=== PATIENT | male | born 1990 | race Caucasian/White ===

== ENCOUNTER 2016-12-08 04:52 | Inpatient (IN) ==
[2016-12-08] MEDS ORDERED: *HR* LORazepam 2 MG/ML VIAL IM PRN (05:00)
[2016-12-08] MEDS ORDERED: Haloperidol Lactate 5 MG/ML VIAL IM PRN (05:00)
[2016-12-08] MEDS ORDERED: Mag Hydrox/Al Hydrox/Simeth 30 ML UDC PO PRN (05:00)
[2016-12-08] MEDS ORDERED: MOM Conc 10 ML UD.LIQ PO PRN (05:00)
[2016-12-08] MEDS ORDERED: Acetaminophen 325 MG TABLET PO PRN (05:00)
[2016-12-08] MEDS ORDERED: traZODone 50 MG TABLET PO PRN (05:00)
[2016-12-08] MEDS ORDERED: *HR* LORazepam 1 MG TABLET PO PRN (05:00)
[2016-12-08] MEDS ORDERED: hydrOXYzine pamoate 25 MG CAPSULE PO PRN (05:00)
--- NOTE | 2016-12-08 10:29 | Psychiatry History & Physical ---
Date of Encounter: 12/08/16 Time of Encounter: 10:23 History of Present Illness Patient Stated Chief Complaint: Suicidal Medicare Admission Attestation: For traditional Medicare patients the provided hospital inpatient services are reasonable and necessary and in the case of services not specified as inpatient -only under 42 CFR 419.22 (n), that they are appropriately provided as inpatient services in accordance 42 CFR 412.3. For Critical Access Hospital the patient may reasonably be expected to be discharged or transferred to a hospital within 96 hours after admission to the Critical Access Hospital. Admitted From: Hospital to Hospital Transfer History of Present Illness: Mr. Chinchilla is a 26 year old male transferred from [facility] for suicidal ideation with plan to stab himself with a knife. Patient had long history of depression and substance abuse including alcohol and marijuana. He had been hospitalized several hospitals in [place] and this hospital when he was 19 years old. Patient is under probation for some legal charges until 2019. Prior to admission patient had an argument with his mother who was concern about his drinking and she wanted to kick him out of the house if he continued to drink. 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 Patient admitted to drinking daily beer and liquor, he does not believe it is a problem and he does not like to be referred to any rehabilitation services. He also is refusing to be on any medication and believes medications are all ineffective and make him "feel like a robot". Past Med Surg Social Fam HX - Past Medical History Medical history: no medical history - Past Psychiatric History Psychiatric history: Reports: depression, previous psychiatric hospitalization Past psychiatric history details: Hospitalization at [facility] 06/11/2009 ,mood disorder NOS , substance abuse and obsessive-compulsive. Family psychiatric history: Unknown Family History of Suicide: Unknown - Past Surgical History Surgical History: no surgical history - Social History Smoking Status: Never smoker Smokeless Tobacco Status: No Alcohol use: none Drug use: none Medications & Allergies No Known Home Drugs 12/08/16 [History] Allergies Penicillins Allergy (Verified 12/08/16 04:59) Rash Review of Systems Psychiatric: Reports: depression, suicidal ideation Mental Status Exam Patient orientation: Yes Person, Yes Time, Yes Place Level of alertness: Alert Patient appearance: Appropriate, Well Groomed Behavior: calm, cooperative, guarded Psychomotor activity: Normal Eye contact: Avoids Eye Contact Mood description: Anxious, Irritable Affect description: constricted, dysphoric Speech pattern: Normal rate, Normal rhythm, Normal tone, Limited Speech volume: Normal Thought process: Linear, Goal Oriented Thought content: Yes Suicidal ideation, Yes Homicidal ideation, No Overt delusions Perceptual disturbances: No Auditory hallucinations, No Visual hallucinations Attention span: Capable of Focused Attention Memory description: Grossly Intact Patient reliability: Reliable Historian Intelligence estimate: Average Judgment: Limited Insight: Partial Results - Vital Signs Vital signs: Temp Pulse Resp BP 98.8 F 54 16 102/62 12/08/16 08:48 12/08/16 08:48 12/08/16 08:48 12/08/16 08:48 Assessment and Plan (1) Mood disorder of depressed type Current visit: Yes Status: Acute Plan: Admit inpatient for safety and stabilization, Close observation, Suicide Precautions per unit protocol, Encourage participation in unit milieu, Group Therapy, Monitor sleep, Monitor appetite Additional Plan: Patient is refusing treatment was any medication and also refusing any oral substance abuse treatment. Risks, benefits, side effects, alternatives discussed w/pt: Yes Patient agreeable to treatment: No (Patient is refusing any medication)
--- NOTE | 2016-12-09 13:39 | Psychiatry Progress Note ---
Date of Encounter: 12/09/16 Time of Encounter: 13:35 Subjective Interval history: Patient was seen for follow-up. He will continue to review his medication and refused to participate in groups. She denies suicidal or homicidal ideation. No reports of agitation or disruptive behavior to self isolate in his room most of the time and does not interact with peers or staff. Review of Systems Psychiatric: Reports: depression, suicidal ideation Objective: Exam Patient orientation: Yes Person, Yes Time, Yes Place Level of alertness: Alert Patient appearance: Appropriate, Well Groomed Behavior: calm, cooperative, guarded Psychomotor activity: Normal Eye contact: Avoids Eye Contact Mood description: Anxious, Irritable Affect description: constricted, dysphoric Speech pattern: Normal rate, Normal rhythm, Normal tone, Limited Speech volume: Normal Thought process: Linear, Goal Oriented Thought content: No Overt delusions Perceptual disturbances: No Auditory hallucinations, No Visual hallucinations Judgment: Limited Insight: Partial Results - Vital Signs Vital Signs: Temp Pulse Resp BP 98.0 F 55 14 104/70 12/09/16 09:00 12/09/16 09:00 12/09/16 09:00 12/09/16 09:00 Assessment and Plan (1) Mood disorder of depressed type Current visit: Yes Status: Acute Plan: Continue hospitalization, Close observation, Suicide Precautions per unit protocol, Encourage participation in unit milieu, Group Therapy, Monitor sleep, Monitor appetite Risks, benefits, side effects, alternatives discussed w/pt: Yes Patient agreeable to treatment: No (Patient is refusing any medication) Consult Discharge Plan - Plan Referrals: NO,PCP [Primary Care Provider] -
--- NOTE | 2016-12-09 13:45 | Psychiatry Progress Note ---
Date of Encounter: 12/09/16 Time of Encounter: 13:46 Subjective Interval history: Patient seen for follow-up. He denies suicidal or homicidal ideation, he refused to take any medication. He refused to participate in groups, she self isolated in his room. Denies any complaints about sleep or appetite. His discharge planning is ongoing. He is not agitated or irritable. Review of Systems Psychiatric: Reports: depression, anxiety. Denies: suicidal ideation Objective: Exam Patient orientation: Yes Person, Yes Time, Yes Place Level of alertness: Alert Patient appearance: Appropriate, Well Groomed Behavior: calm, cooperative, guarded Psychomotor activity: Normal Eye contact: Avoids Eye Contact Mood description: Anxious, Irritable Affect description: constricted, dysphoric Speech pattern: Normal rate, Normal rhythm, Normal tone, Limited Speech volume: Normal Thought process: Linear, Goal Oriented Thought content: No Suicidal ideation, No Homicidal ideation, No Overt delusions Perceptual disturbances: No Auditory hallucinations, No Visual hallucinations Judgment: Limited Insight: Partial Results - Vital Signs Vital Signs: Temp Pulse Resp BP 98.0 F 55 14 104/70 12/09/16 09:00 12/09/16 09:00 12/09/16 09:00 12/09/16 09:00 Assessment and Plan (1) Mood disorder of depressed type Current visit: Yes Status: Acute Plan: Continue hospitalization, Close observation, Suicide Precautions per unit protocol, Encourage participation in unit milieu, Group Therapy, Monitor sleep, Monitor appetite Risks, benefits, side effects, alternatives discussed w/pt: Yes Patient agreeable to treatment: No (Patient is refusing any medication) Consult Discharge Plan - Plan Referrals: NO,PCP [Primary Care Provider] -
[2016-12-10 09:21] VITALS: BP 116/79
--- NOTE | 2016-12-10 13:11 | Discharge Summary ---
Date of Encounter: 12/10/16 Time of Encounter: 13:09 Diagnosis - Discharge Diagnosis (1) Mood disorder of depressed type Status: Acute (2) Alcohol dependence Status: Acute Qualifiers: Substance use status: alcohol-induced mood disorder Qualified Code(s): F10.24 - Alcohol dependence with alcohol-induced mood disorder Medications - Discharge Medications No Known Home Drugs 12/08/16 [History] Allergies Penicillins Allergy (Verified 12/08/16 04:59) Rash Provider Date of admission: 12/08/16 04:52 Primary care physician: PCP NO Discharging clinician: Raciel Soler Assessment and Plan - Patient/Caregiver Discharge Instructions Activity: resume usual activities as tolerated Diet: regular diet Additional Instructions: Patient declines for any outpatient follow-up appointments to be made on his behalf. Patient has been provided with resources for such should he wish to pursue this in the future. [place], [place] [address]/04 [facility] crisis number [phone]. - Follow up Plan Functional capacity at discharge: independent ambulation Overall status at discharge: Stable Disposition: Home, Self-Care Hospital Course Hospital course: Mr. Chinchilla is a 26 year old male admitted for suicidal ideation. Patient also has history of alcohol dependence. For details admission please see H&P On the units the patient's refusal was to take any medication, also refuses to attend any group or activities he isolated himself in his room and did not participate in any activities. He denies suicidal and homicidal ideation and he did not agree to follow-up plans or referral to rehabilitation treatment. Prior to discharge he was medically stable, on no medication, denies suicidal or homicidal ideation and refused any follow-up treatments. - Time Spent with Patient Total time spent providing and/or coordinating discharge services: Less than 30 minutes Quality - Multiple Antipsychotics Patient discharged on 2 or more antipsychotic medications: No Procedures - Procedures Procedures: Medication Management, Crisis Stabilization, Supportive Therapy, Group Therapy, Psychoeducational Therapy Mental Status Exam - Mental Status Exam Patient orientation: Yes Person, Yes Time, Yes Place Level of alertness: Alert Patient appearance: Appropriate, Well Groomed Behavior: calm, cooperative, guarded Psychomotor activity: Normal Eye contact: Avoids Eye Contact Mood description: Euthymic/stable, Anxious Affect description: congruent with mood, euthymic Speech pattern: Normal rate, Normal rhythm, Normal tone, Limited Speech Volume: Normal Thought process: Linear, Goal Oriented Thought Content: No Suicidal ideation, No Homicidal ideation, No Overt delusions Perceptual Disturbances: No Auditory hallucinations, No Visual hallucinations Judgment: Fair Insight: Partial
== END 2016-12-10 15:20 | disposition home or self-care (01) | DRG 753 ==
LOC: 1ANU 04:52
PROVIDERS: ADMIT Psychiatry & Neurology Psychiatry; ATTEND Psychiatry & Neurology Psychiatry

== ENCOUNTER 2016-12-11 18:15 | Inpatient (IN) ==
[2016-12-11 18:51] LABS: Basophils % 0.3 %; Eosinophils # 0.1 K/mcL (0.0-0.6); Eosinophils % 0.9 %; Hematocrit 42.6 % (37.5-50.1); Hemoglobin 14.7 g/dL (12.9-16.9); Immature Granulocytes % 0.2 % (0-4); Lymphocytes # 2.1 K/mcL (0.6-4.6); Lymphocytes % 23.7 %; Mean Corpuscular HGB Conc 34.5 g/dL (31.6-35.5); Mean Corpuscular Hemoglobin 30.2 pg (28.0-33.3); Mean Corpuscular Volume 87.7 fL (83.0-100.0); Mean Platelet Volume 8.6 fL (9.4-12.4); Monocytes # 0.7 K/mcL (0.0-1.3); Monocytes % 8.2 %; Platelet Count 290 K/mcL (140-400); Red Blood Count 4.86 M/mcL (4.19-5.50); Red Cell Distribution Width 12.3 % (11.5-14.5); Segmented Neutrophils % 66.7 %
--- NOTE | 2016-12-11 19:05 | Emergency Department Note ---
Disposition Clinical Impression: Suicidal ideation Suicide attempt by hanging Qualifiers: Encounter type: initial encounter Qualified Code(s): T71.162A - Asphyxiation due to hanging, intentional self-harm, initial encounter Disposition: Still a Patient Condition: Fair Referrals: NO,PCP [Primary Care Provider] - Forms: ED Satisfaction Letter General Adult HPI - General Chief complaint: ED Psychiatric Symptoms Stated complaint: SI Time Seen by Provider: 12/11/16 18:25 Source: patient Limitations: no limitations Nursing Notes Reviewed: Yes Vital Signs Reviewed: Yes - History of Present Illness Pain Scale: 0 - Related Data Home Medications Medication Instructions Recorded Confirmed No Known Home Drugs 12/08/16 12/08/16 Allergies Allergy/AdvReac Type Severity Reaction Status Date / Time Penicillins Allergy Rash Verified 12/08/16 04:59 Past Medical History - Past Medical History Medical history: Reports: no medical history Surgical history: Reports: no surgical history Psychiatric history: Reports: anxiety, bipolar, depression, schizophrenia, previous psychiatric hospitalization, other - Social History Smoking Status: Former smoker Smokeless Tobacco Status: No Alcohol use: Reports: none Drug use: Reports: none Physical Exam - General Limitations: no limitations General appearance: alert, in no apparent distress Course Vital Signs Temperature 98.4 F 12/11/16 18:16 Pulse Rate 82 12/11/16 18:16 Respiratory Rate 16 12/11/16 18:16 Blood Pressure 143/91 12/11/16 18:16 O2 Sat by Pulse Oximetry 100 12/11/16 18:16 Temperature 98.4 F 12/11/16 18:16 Pulse Rate 89 12/11/16 21:21 Respiratory Rate 14 12/11/16 21:21 Blood Pressure 121/64 12/11/16 21:21 O2 Sat by Pulse Oximetry 97 12/11/16 21:21 Oxygen Delivery Oxygen Delivery Room Air Medical Decision Making - MDM Narrative Medical decision making narrative: I examined this patient and my medical decision-making was reviewed with the DIRECTOR OF ASSESSMENT/PA/Advanced Practice Nurse/Resident Physician. I agree with the documented findings, disposition and treatment plan as described except to the extent set forth below. Patient seen and evaluated. Myself, agree with his evaluation management plan, Suprax give additional stay. Patient is a history of suicidal ideations was just dismissed from psychiatric services. He went home today he put a rope around his neck and and leaned out over it but did not actually hang himself. A he decided that this was a bad idea & came in here to be seen here is cooperative does have somewhat of a flat effect. Denies any visual or auditory hallucinations. Getting clearance labs and then will speak to onea further evaluation and probable admission. 2039 hours: Patient's labs are back, 1A has evaluated the patient that I speak with her psychiatrist and then they will get back to us as far as disposition. - Lab Data Result diagrams: 12/11/16 18:43 12/11/16 18:43 Lab Results 12/11/16 12/11/16 12/11/16 Range/Units 18:25 18:40 18:43 WBC 9.0 (4.3-11.1) K/mcL RBC 4.86 (4.19-5.50) M/mcL Hgb 14.7 (12.9-16.9) g/dL Hct 42.6 (37.5-50.1) % MCV 87.7 (83.0-100.0) fL MCH 30.2 (28.0-33.3) pg MCHC 34.5 (31.6-35.5) g/dL RDW 12.3 (11.5-14.5) % Plt Count 290 (140-400) K/mcL MPV 8.6 L (9.4-12.4) fL Immature Gran % 0.2 (0-4) % Seg Neutrophils % 66.7 % Lymphocytes % 23.7 % Monocytes % 8.2 % Eosinophils % 0.9 % Basophils % 0.3 % Neutrophils # 6.0 (1.6-8.9) K/mcL Lymphocytes # 2.1 (0.6-4.6) K/mcL Monocytes # 0.7 (0.0-1.3) K/mcL Eosinophils # 0.1 (0.0-0.6) K/mcL Basophils # 0.0 (0.0-0.2) K/mcL Sodium (136-145) mEq/L Potassium (3.5-4.5) mEq/L Chloride (98-109) mEq/L Carbon Dioxide (19-29) mEq/L BUN (8-26) mg/dL Creatinine (0.72-1.25) mg/dL Est GFR ( Amer) (> 60) Est GFR (Non-Af Amer) (> 60) BUN/Creatinine Ratio (6-26) Glucose (70-99) mg/dL Calculated Osmolality (280-300) Calcium (8.6-10.8) mg/dL Urine Color Yellow (Yellow) Urine Clarity Clear (Clear) Urine pH 6.5 (5.0-8.0) pH Units Ur Specific Corinne 1.010 (1.010-1.025) Urine Protein Negative (Neg-Trace) mg/dL Urine Glucose (UA) Normal (Normal) mg/dL Urine Ketones Negative (Negative) mg/dL Urine Blood Negative (Negative) Urine Nitrite Negative (Negative) Urine Bilirubin Negative (Negative) Urine Urobilinogen Normal (Normal) mg/dL Ur Leukocyte Esterase Negative (Negative) Salicylates (15-30) mg/dL Urine Opiates Screen Negative (Znxwbg=245) ng/mL Acetaminophen (10-30) mcg/mL Ur Barbiturates Screen Negative (Cvxonp=292) ng/mL Ur Phencyclidine Scrn Negative (Cutoff=25) ng/mL Ur Amphetamines Screen Negative (Ywbjdh=1453) ng/mL U Benzodiazepines Scrn Negative (Kwsbis=137) ng/mL Urine Cocaine Screen Negative (Cutoff= 300) ng/mL U Marijuana (THC) Screen Negative (Cutoff = 50) ng/mL Ethyl Alcohol (0-10) mg/dL 12/11/16 Range/Units 18:43 WBC (4.3-11.1) K/mcL RBC (4.19-5.50) M/mcL Hgb (12.9-16.9) g/dL Hct (37.5-50.1) % MCV (83.0-100.0) fL MCH (28.0-33.3) pg MCHC (31.6-35.5) g/dL RDW (11.5-14.5) % Plt Count (140-400) K/mcL MPV (9.4-12.4) fL Immature Gran % (0-4) % Seg Neutrophils % % Lymphocytes % % Monocytes % % Eosinophils % % Basophils % % Neutrophils # (1.6-8.9) K/mcL Lymphocytes # (0.6-4.6) K/mcL Monocytes # (0.0-1.3) K/mcL Eosinophils # (0.0-0.6) K/mcL Basophils # (0.0-0.2) K/mcL Sodium 140 (136-145) mEq/L Potassium 3.4 L (3.5-4.5) mEq/L Chloride 103 (98-109) mEq/L Carbon Dioxide 27 (19-29) mEq/L BUN 9 (8-26) mg/dL Creatinine 1.20 (0.72-1.25) mg/dL Est GFR ( Amer) > 60 (> 60) Est GFR (Non-Af Amer) > 60 (> 60) BUN/Creatinine Ratio 8 (6-26) Glucose 93 (70-99) mg/dL Calculated Osmolality 288 (280-300) Calcium 9.2 (8.6-10.8) mg/dL Urine Color (Yellow) Urine Clarity (Clear) Urine pH (5.0-8.0) pH Units Ur Specific Corinne (1.010-1.025) Urine Protein (Neg-Trace) mg/dL Urine Glucose (UA) (Normal) mg/dL Urine Ketones (Negative) mg/dL Urine Blood (Negative) Urine Nitrite (Negative) Urine Bilirubin (Negative) Urine Urobilinogen (Normal) mg/dL Ur Leukocyte Esterase (Negative) Salicylates < 5.0 L (15-30) mg/dL Urine Opiates Screen (Fqcjzq=942) ng/mL Acetaminophen < 1.0 L (10-30) mcg/mL Ur Barbiturates Screen (Mrhuwp=608) ng/mL Ur Phencyclidine Scrn (Cutoff=25) ng/mL Ur Amphetamines Screen (Vilsga=4900) ng/mL U Benzodiazepines Scrn (Nxinxx=826) ng/mL Urine Cocaine Screen (Cutoff= 300) ng/mL U Marijuana (THC) Screen (Cutoff = 50) ng/mL Ethyl Alcohol < 10 (0-10) mg/dL
[2016-12-11 19:06] LABS: Acetaminophen < 1.0 mcg/mL (10-30); BUN/Creatinine Ratio 8 (6-26); Blood Urea Nitrogen 9 mg/dL (8-26); Calcium 9.2 mg/dL (8.6-10.8); Carbon Dioxide 27 mEq/L (19-29); Chloride 103 mEq/L (98-109); Ethanol < 10 mg/dL (0-10); Glucose 93 mg/dL (70-99); Osmolality,Calculated 288 (280-300); Potassium 3.4 mEq/L (3.5-4.5); Salicylate < 5.0 mg/dL (15-30); Sodium 140 mEq/L (136-145); eGFR For African Americans > 60 (> 60); eGFR For Non-African Americans > 60 (> 60)
[2016-12-11 19:07] LABS: Amphetamine Screen,Urine Negative ng/mL (Cutoff=1000); Barbiturate Screen,Urine Negative ng/mL (Cutoff=200); Benzodiazepines Screen,Urine Negative ng/mL (Cutoff=200); Cannabinoid Screen,Urine Negative ng/mL (Cutoff = 50); Cocaine Screen,Urine Negative ng/mL (Cutoff= 300); Opiate Screen,Urine Negative ng/mL (Cutoff=300); Phencyclidine Screen,Urine Negative ng/mL (Cutoff=25)
[2016-12-11 19:30] LABS: Bilirubin,Urine Negative (Negative); Clarity,Urine Clear (Clear); Color,Urine Yellow (Yellow); Glucose,Urine (UA) Normal (Normal); Ketones,Urine Negative (Negative)
[2016-12-11 19:31] LABS: Blood,Urine Negative (Negative); Leukocyte Esterase,Urine Negative (Negative); Nitrite,Urine Negative (Negative); PH,Urine 6.5 pH Units (5.0-8.0); Protein,Urine Negative (Neg-Trace); Urobilinogen,Urine Normal (Normal)
--- NOTE | 2016-12-11 19:42 | Emergency Department Note ---
Disposition Clinical Impression: Suicidal ideation Suicide attempt by hanging Qualifiers: Encounter type: initial encounter Qualified Code(s): T71.162A - Asphyxiation due to hanging, intentional self-harm, initial encounter Disposition: Still a Patient Condition: Fair Referrals: NO,PCP [Primary Care Provider] - Forms: ED Satisfaction Letter General Adult HPI - General Chief complaint: ED Psychiatric Symptoms Stated complaint: SI Time Seen by Provider: 12/11/16 18:25 Source: patient Limitations: no limitations Nursing Notes Reviewed: Yes Vital Signs Reviewed: Yes - History of Present Illness HPI Narrative: 26-year-old male with past medical history depression and prior suicide attempts. He said he went out to the [place] today with a rope and tied it around a tree and then put it around his neck and slowly leaned into it to try to make himself pass out. He did not jump off a branch or suspend his body by the rope. He became lightheaded after about 30 seconds and then thought better of it and came to the emergency department. He denies taking any medications. He denies any medical problems aside from a psychiatric history. He denies overdosing on any medications. He denies any pain in his neck, headache, or numbness or tingling in his hands or feet. He admits that he did want to kill himself and that he still wants to kill himself. Pain Scale: 0 Improves with: nothing Worsens with: nothing - Related Data Home Medications Medication Instructions Recorded Confirmed No Known Home Drugs 12/08/16 12/08/16 Allergies Allergy/AdvReac Type Severity Reaction Status Date / Time Penicillins Allergy Rash Verified 12/08/16 04:59 All systems ED: reviewed and negative except as stated. Constitutional: Denies: fever Eyes: Denies: vision change ENT ED: Denies: throat pain Cardiovascular: Denies: chest pain Respiratory: Denies: cough Gastrointestinal: Denies: abdominal pain Integumentary: Denies: rash Neurological: Denies: headache Past Medical History - Past Medical History Medical history: Reports: no medical history Surgical history: Reports: no surgical history Psychiatric history: Reports: anxiety, bipolar, depression, schizophrenia, previous psychiatric hospitalization, other - Social History Smoking Status: Former smoker Smokeless Tobacco Status: No Alcohol use: Reports: none Drug use: Reports: none Physical Exam - General Limitations: no limitations General appearance: alert, in no apparent distress - Eye Eye exam: Present: normal appearance, PERRL, other (No conjunctival hemorrhage) - ENT ENT exam: normal exam, normal oropharynx - Neck Neck exam: Present: other (Mild abrasion to left lateral neck) - Chest Chest inspection: Present: normal inspection - Respiratory Respiratory exam: Present: normal lung sounds bilaterally. Absent: respiratory distress - Cardiovascular Cardiovascular exam: Present: regular rate, normal rhythm - Abdominal Exam Abdominal exam: Present: soft, Non-Tender - Extremities Exam Extremities exam: Present: normal inspection - Neurological Exam Neurological exam: Present: alert, oriented X3 - Psychiatric Psychiatric exam: Present: depressed - Skin Skin exam: Present: warm, dry Course Course Narrative: Will obtain medical screening labs. There is no symptom that he currently has it is consistent with carotid artery injury or vertebral artery injury. He has normal neurologic exam. No neck pain or headache. He has no pain on palpation of the cervical spine. - Reevaluation(s) Reevaluation #1: This patient was evaluated by [facility] and they will work on transfer to a state facility. This patient has been signed out to the night team while waiting for placement. Vital Signs Temperature 98.4 F 12/11/16 18:16 Pulse Rate 82 12/11/16 18:16 Respiratory Rate 16 12/11/16 18:16 Blood Pressure 143/91 12/11/16 18:16 O2 Sat by Pulse Oximetry 100 12/11/16 18:16 Temperature 98.4 F 12/11/16 18:16 Pulse Rate 89 12/11/16 21:21 Respiratory Rate 14 12/11/16 21:21 Blood Pressure 121/64 12/11/16 21:21 O2 Sat by Pulse Oximetry 97 12/11/16 21:21 Oxygen Delivery Oxygen Delivery Room Air Medical Decision Making - Medical Records Medical records reviewed: Yes I reviewed the patient's medical records. - Lab Data Lab results reviewed: Yes I reviewed the patient's lab results. Result diagrams: 12/11/16 18:43 12/11/16 18:43 Lab Results 12/11/16 12/11/16 12/11/16 Range/Units 18:25 18:40 18:43 WBC 9.0 (4.3-11.1) K/mcL RBC 4.86 (4.19-5.50) M/mcL Hgb 14.7 (12.9-16.9) g/dL Hct 42.6 (37.5-50.1) % MCV 87.7 (83.0-100.0) fL MCH 30.2 (28.0-33.3) pg MCHC 34.5 (31.6-35.5) g/dL RDW 12.3 (11.5-14.5) % Plt Count 290 (140-400) K/mcL MPV 8.6 L (9.4-12.4) fL Immature Gran % 0.2 (0-4) % Seg Neutrophils % 66.7 % Lymphocytes % 23.7 % Monocytes % 8.2 % Eosinophils % 0.9 % Basophils % 0.3 % Neutrophils # 6.0 (1.6-8.9) K/mcL Lymphocytes # 2.1 (0.6-4.6) K/mcL Monocytes # 0.7 (0.0-1.3) K/mcL Eosinophils # 0.1 (0.0-0.6) K/mcL Basophils # 0.0 (0.0-0.2) K/mcL Sodium (136-145) mEq/L Potassium (3.5-4.5) mEq/L Chloride (98-109) mEq/L Carbon Dioxide (19-29) mEq/L BUN (8-26) mg/dL Creatinine (0.72-1.25) mg/dL Est GFR ( Amer) (> 60) Est GFR (Non-Af Amer) (> 60) BUN/Creatinine Ratio (6-26) Glucose (70-99) mg/dL Calculated Osmolality (280-300) Calcium (8.6-10.8) mg/dL Urine Color Yellow (Yellow) Urine Clarity Clear (Clear) Urine pH 6.5 (5.0-8.0) pH Units Ur Specific [place] 1.010 (1.010-1.025) Urine Protein Negative (Neg-Trace) mg/dL Urine Glucose (UA) Normal (Normal) mg/dL Urine Ketones Negative (Negative) mg/dL Urine Blood Negative (Negative) Urine Nitrite Negative (Negative) Urine Bilirubin Negative (Negative) Urine Urobilinogen Normal (Normal) mg/dL Ur Leukocyte Esterase Negative (Negative) Salicylates (15-30) mg/dL Urine Opiates Screen Negative (Obnros=352) ng/mL Acetaminophen (10-30) mcg/mL Ur Barbiturates Screen Negative (Odtwfs=989) ng/mL Ur Phencyclidine Scrn Negative (Cutoff=25) ng/mL Ur Amphetamines Screen Negative (Dpignm=8340) ng/mL U Benzodiazepines Scrn Negative (Ncyfkl=659) ng/mL Urine Cocaine Screen Negative (Cutoff= 300) ng/mL U Marijuana (THC) Screen Negative (Cutoff = 50) ng/mL Ethyl Alcohol (0-10) mg/dL 12/11/16 Range/Units 18:43 WBC (4.3-11.1) K/mcL RBC (4.19-5.50) M/mcL Hgb (12.9-16.9) g/dL Hct (37.5-50.1) % MCV (83.0-100.0) fL MCH (28.0-33.3) pg MCHC (31.6-35.5) g/dL RDW (11.5-14.5) % Plt Count (140-400) K/mcL MPV (9.4-12.4) fL Immature Gran % (0-4) % Seg Neutrophils % % Lymphocytes % % Monocytes % % Eosinophils % % Basophils % % Neutrophils # (1.6-8.9) K/mcL Lymphocytes # (0.6-4.6) K/mcL Monocytes # (0.0-1.3) K/mcL Eosinophils # (0.0-0.6) K/mcL Basophils # (0.0-0.2) K/mcL Sodium 140 (136-145) mEq/L Potassium 3.4 L (3.5-4.5) mEq/L Chloride 103 (98-109) mEq/L Carbon Dioxide 27 (19-29) mEq/L BUN 9 (8-26) mg/dL Creatinine 1.20 (0.72-1.25) mg/dL Est GFR ( Amer) > 60 (> 60) Est GFR (Non-Af Amer) > 60 (> 60) BUN/Creatinine Ratio 8 (6-26) Glucose 93 (70-99) mg/dL Calculated Osmolality 288 (280-300) Calcium 9.2 (8.6-10.8) mg/dL Urine Color (Yellow) Urine Clarity (Clear) Urine pH (5.0-8.0) pH Units Ur Specific [place] (1.010-1.025) Urine Protein (Neg-Trace) mg/dL Urine Glucose (UA) (Normal) mg/dL Urine Ketones (Negative) mg/dL Urine Blood (Negative) Urine Nitrite (Negative) Urine Bilirubin (Negative) Urine Urobilinogen (Normal) mg/dL Ur Leukocyte Esterase (Negative) Salicylates < 5.0 L (15-30) mg/dL Urine Opiates Screen (Pgmfvw=879) ng/mL Acetaminophen < 1.0 L (10-30) mcg/mL Ur Barbiturates Screen (Nlvxqn=020) ng/mL Ur Phencyclidine Scrn (Cutoff=25) ng/mL Ur Amphetamines Screen (Bluhvb=7981) ng/mL U Benzodiazepines Scrn (Enogot=986) ng/mL Urine Cocaine Screen (Cutoff= 300) ng/mL U Marijuana (THC) Screen (Cutoff = 50) ng/mL Ethyl Alcohol < 10 (0-10) mg/dL
--- NOTE | 2016-12-11 22:52 | Emergency Department Note ---
Disposition Clinical Impression: Suicidal ideation Suicide attempt by hanging Qualifiers: Encounter type: initial encounter Qualified Code(s): T71.162A - Asphyxiation due to hanging, intentional self-harm, initial encounter Disposition: Still a Patient Condition: Fair Referrals: NO,PCP [Primary Care Provider] - Forms: ED Satisfaction Letter General Adult HPI - General Chief complaint: ED Psychiatric Symptoms Stated complaint: SI Time Seen by Provider: 12/11/16 18:25 Source: patient Limitations: no limitations Nursing Notes Reviewed: Yes Vital Signs Reviewed: Yes - History of Present Illness Pain Scale: 0 Improves with: nothing Worsens with: nothing - Related Data Home Medications Medication Instructions Recorded Confirmed No Known Home Drugs 12/08/16 12/08/16 Allergies Allergy/AdvReac Type Severity Reaction Status Date / Time Penicillins Allergy Rash Verified 12/08/16 04:59 Constitutional: Denies: fever Eyes: Denies: vision change ENT ED: Denies: throat pain Cardiovascular: Denies: chest pain Respiratory: Denies: cough Gastrointestinal: Denies: abdominal pain Integumentary: Denies: rash Neurological: Denies: headache Past Medical History - Past Medical History Medical history: Reports: no medical history Surgical history: Reports: no surgical history Psychiatric history: Reports: anxiety, bipolar, depression, schizophrenia, previous psychiatric hospitalization, other - Social History Smoking Status: Former smoker Smokeless Tobacco Status: No Alcohol use: Reports: none Drug use: Reports: none Physical Exam - General Limitations: no limitations General appearance: alert, in no apparent distress Course Vital Signs Temperature 98.4 F 12/11/16 18:16 Pulse Rate 82 12/11/16 18:16 Respiratory Rate 16 12/11/16 18:16 Blood Pressure 143/91 12/11/16 18:16 O2 Sat by Pulse Oximetry 100 12/11/16 18:16 Temperature 98.4 F 12/11/16 18:16 Pulse Rate 89 12/11/16 21:21 Respiratory Rate 14 12/11/16 21:21 Blood Pressure 121/64 12/11/16 21:21 O2 Sat by Pulse Oximetry 97 12/11/16 21:21 Oxygen Delivery Oxygen Delivery Room Air Medical Decision Making - MDM Narrative Medical decision making narrative: 2251 hrs.: Signing this patient out to the evening ER physician, Dr Art until he is able to be placed by 18. Patient has no questions at this point he has been cooperative here at this time. - Lab Data Result diagrams: 12/11/16 18:43 12/11/16 18:43 Lab Results 12/11/16 12/11/16 12/11/16 Range/Units 18:25 18:40 18:43 WBC 9.0 (4.3-11.1) K/mcL RBC 4.86 (4.19-5.50) M/mcL Hgb 14.7 (12.9-16.9) g/dL Hct 42.6 (37.5-50.1) % MCV 87.7 (83.0-100.0) fL MCH 30.2 (28.0-33.3) pg MCHC 34.5 (31.6-35.5) g/dL RDW 12.3 (11.5-14.5) % Plt Count 290 (140-400) K/mcL MPV 8.6 L (9.4-12.4) fL Immature Gran % 0.2 (0-4) % Seg Neutrophils % 66.7 % Lymphocytes % 23.7 % Monocytes % 8.2 % Eosinophils % 0.9 % Basophils % 0.3 % Neutrophils # 6.0 (1.6-8.9) K/mcL Lymphocytes # 2.1 (0.6-4.6) K/mcL Monocytes # 0.7 (0.0-1.3) K/mcL Eosinophils # 0.1 (0.0-0.6) K/mcL Basophils # 0.0 (0.0-0.2) K/mcL Sodium (136-145) mEq/L Potassium (3.5-4.5) mEq/L Chloride (98-109) mEq/L Carbon Dioxide (19-29) mEq/L BUN (8-26) mg/dL Creatinine (0.72-1.25) mg/dL Est GFR ( Amer) (> 60) Est GFR (Non-Af Amer) (> 60) BUN/Creatinine Ratio (6-26) Glucose (70-99) mg/dL Calculated Osmolality (280-300) Calcium (8.6-10.8) mg/dL Urine Color Yellow (Yellow) Urine Clarity Clear (Clear) Urine pH 6.5 (5.0-8.0) pH Units Ur Specific [place] 1.010 (1.010-1.025) Urine Protein Negative (Neg-Trace) mg/dL Urine Glucose (UA) Normal (Normal) mg/dL Urine Ketones Negative (Negative) mg/dL Urine Blood Negative (Negative) Urine Nitrite Negative (Negative) Urine Bilirubin Negative (Negative) Urine Urobilinogen Normal (Normal) mg/dL Ur Leukocyte Esterase Negative (Negative) Salicylates (15-30) mg/dL Urine Opiates Screen Negative (Shfazg=785) ng/mL Acetaminophen (10-30) mcg/mL Ur Barbiturates Screen Negative (Mptmti=063) ng/mL Ur Phencyclidine Scrn Negative (Cutoff=25) ng/mL Ur Amphetamines Screen Negative (Ncytny=9628) ng/mL U Benzodiazepines Scrn Negative (Rvgjtq=267) ng/mL Urine Cocaine Screen Negative (Cutoff= 300) ng/mL U Marijuana (THC) Screen Negative (Cutoff = 50) ng/mL Ethyl Alcohol (0-10) mg/dL 12/11/16 Range/Units 18:43 WBC (4.3-11.1) K/mcL RBC (4.19-5.50) M/mcL Hgb (12.9-16.9) g/dL Hct (37.5-50.1) % MCV (83.0-100.0) fL MCH (28.0-33.3) pg MCHC (31.6-35.5) g/dL RDW (11.5-14.5) % Plt Count (140-400) K/mcL MPV (9.4-12.4) fL Immature Gran % (0-4) % Seg Neutrophils % % Lymphocytes % % Monocytes % % Eosinophils % % Basophils % % Neutrophils # (1.6-8.9) K/mcL Lymphocytes # (0.6-4.6) K/mcL Monocytes # (0.0-1.3) K/mcL Eosinophils # (0.0-0.6) K/mcL Basophils # (0.0-0.2) K/mcL Sodium 140 (136-145) mEq/L Potassium 3.4 L (3.5-4.5) mEq/L Chloride 103 (98-109) mEq/L Carbon Dioxide 27 (19-29) mEq/L BUN 9 (8-26) mg/dL Creatinine 1.20 (0.72-1.25) mg/dL Est GFR ( Amer) > 60 (> 60) Est GFR (Non-Af Amer) > 60 (> 60) BUN/Creatinine Ratio 8 (6-26) Glucose 93 (70-99) mg/dL Calculated Osmolality 288 (280-300) Calcium 9.2 (8.6-10.8) mg/dL Urine Color (Yellow) Urine Clarity (Clear) Urine pH (5.0-8.0) pH Units Ur Specific [place] (1.010-1.025) Urine Protein (Neg-Trace) mg/dL Urine Glucose (UA) (Normal) mg/dL Urine Ketones (Negative) mg/dL Urine Blood (Negative) Urine Nitrite (Negative) Urine Bilirubin (Negative) Urine Urobilinogen (Normal) mg/dL Ur Leukocyte Esterase (Negative) Salicylates < 5.0 L (15-30) mg/dL Urine Opiates Screen (Pxfyge=453) ng/mL Acetaminophen < 1.0 L (10-30) mcg/mL Ur Barbiturates Screen (Zskkjt=212) ng/mL Ur Phencyclidine Scrn (Cutoff=25) ng/mL Ur Amphetamines Screen (Pqluww=5669) ng/mL U Benzodiazepines Scrn (Mewywz=777) ng/mL Urine Cocaine Screen (Cutoff= 300) ng/mL U Marijuana (THC) Screen (Cutoff = 50) ng/mL Ethyl Alcohol < 10 (0-10) mg/dL
--- NOTE | 2016-12-12 03:11 | Emergency Department Note ---
START Narrative - START START: 300. Patient resting comfortably. [facility] attempting to place. 0700. Patient still, cooperative. Still awaiting placement. Signed out to day shift doctor Jl.
--- NOTE | 2016-12-12 07:15 | Emergency Department Note ---
Disposition Clinical Impression: Suicidal ideation Disposition: Admitted As Inpatient Condition: Good Referrals: NO,PCP [Primary Care Provider] - Surya Wright MD [Partnered Physician] - Forms: ED Satisfaction Letter Time of Disposition: 12:31 General Adult HPI - General Chief complaint: ED Psychiatric Symptoms Stated complaint: SI Time Seen by Provider: 12/11/16 18:25 Source: patient Limitations: no limitations - History of Present Illness Pain Scale: 0 Improves with: nothing Worsens with: nothing - Related Data Home Medications Medication Instructions Recorded Confirmed No Known Home Drugs 12/08/16 12/08/16 Allergies Allergy/AdvReac Type Severity Reaction Status Date / Time Penicillins Allergy Rash Verified 12/08/16 04:59 Constitutional: Denies: fever Eyes: Denies: vision change ENT ED: Denies: throat pain Cardiovascular: Denies: chest pain Respiratory: Denies: cough Gastrointestinal: Denies: abdominal pain Integumentary: Denies: rash Neurological: Denies: headache Past Medical History - Past Medical History Medical history: Reports: no medical history Surgical history: Reports: no surgical history Psychiatric history: Reports: anxiety, bipolar, depression, schizophrenia, previous psychiatric hospitalization, other - Social History Smoking Status: Former smoker Smokeless Tobacco Status: No Alcohol use: Reports: none Drug use: Reports: none Physical Exam - General Limitations: no limitations General appearance: alert, in no apparent distress Course - Reevaluation(s) Reevaluation #1: Patient received in sign out from the overnight attending Dr. umana. She got the patient in signout from Dr. Childs. Please refer to their notes for initial evaluation workup and management. Patient was accepted at 700. Patient has been pink slipped. Patient is waiting to be placed into an inpatient state facility. Patient is stable. Mental health services working on disposition. Time: 07:14 Reevaluation #2: Discussed the case with P, health services had a discussion with the psychiatric attending Dr. FITCH. They felt the patient was currently not suicidal. It was just recently admitted and declined the forms of intervention including therapy individual therapy pharmacotherapy and no other interventions. There is no acute lethality patient can be discharged home and given and offered outpatient follow-up should the patient she was taken advantage of this. Otherwise he is stable for discharge home. Time: 11:48 Reevaluation #3: Upon discharge and the patient the patient admitted that before when he was evaluated by mental health he was not feeling suicidal at that exact moment". Now he is. I recontacted mental health will come down to evaluate the patient and make a disposition. Disposition pending. Patient stable. Time: 12:06 - Consultations Consultation #1: Discussion with The nurse from mental health services contacted the psychiatric attending home care companion who stated for safety with the patient will be admitted for further evaluation and treatment. Admission were placed. [place] slip on chart. Patient admitted to mental health in stable condition Time: 12:31 Vital Signs Temperature 98.4 F 12/11/16 18:16 Pulse Rate 82 12/11/16 18:16 Respiratory Rate 16 12/11/16 18:16 Blood Pressure 143/91 12/11/16 18:16 O2 Sat by Pulse Oximetry 100 12/11/16 18:16 Temperature 98.4 F 12/11/16 18:16 Pulse Rate 67 12/12/16 12:13 Respiratory Rate 16 12/12/16 12:13 Blood Pressure 123/79 12/12/16 12:13 O2 Sat by Pulse Oximetry 97 12/12/16 12:13 Oxygen Delivery Oxygen Delivery Room Air Medical Decision Making - Lab Data Result diagrams: 12/11/16 18:43 12/11/16 18:43 Lab Results 12/11/16 12/11/16 12/11/16 Range/Units 18:25 18:40 18:43 WBC 9.0 (4.3-11.1) K/mcL RBC 4.86 (4.19-5.50) M/mcL Hgb 14.7 (12.9-16.9) g/dL Hct 42.6 (37.5-50.1) % MCV 87.7 (83.0-100.0) fL MCH 30.2 (28.0-33.3) pg MCHC 34.5 (31.6-35.5) g/dL RDW 12.3 (11.5-14.5) % Plt Count 290 (140-400) K/mcL MPV 8.6 L (9.4-12.4) fL Immature Gran % 0.2 (0-4) % Seg Neutrophils % 66.7 % Lymphocytes % 23.7 % Monocytes % 8.2 % Eosinophils % 0.9 % Basophils % 0.3 % Neutrophils # 6.0 (1.6-8.9) K/mcL Lymphocytes # 2.1 (0.6-4.6) K/mcL Monocytes # 0.7 (0.0-1.3) K/mcL Eosinophils # 0.1 (0.0-0.6) K/mcL Basophils # 0.0 (0.0-0.2) K/mcL Sodium (136-145) mEq/L Potassium (3.5-4.5) mEq/L Chloride (98-109) mEq/L Carbon Dioxide (19-29) mEq/L BUN (8-26) mg/dL Creatinine (0.72-1.25) mg/dL Est GFR ( Amer) (> 60) Est GFR (Non-Af Amer) (> 60) BUN/Creatinine Ratio (6-26) Glucose (70-99) mg/dL Calculated Osmolality (280-300) Calcium (8.6-10.8) mg/dL Urine Color Yellow (Yellow) Urine Clarity Clear (Clear) Urine pH 6.5 (5.0-8.0) pH Units Ur Specific [place] 1.010 (1.010-1.025) Urine Protein Negative (Neg-Trace) mg/dL Urine Glucose (UA) Normal (Normal) mg/dL Urine Ketones Negative (Negative) mg/dL Urine Blood Negative (Negative) Urine Nitrite Negative (Negative) Urine Bilirubin Negative (Negative) Urine Urobilinogen Normal (Normal) mg/dL Ur Leukocyte Esterase Negative (Negative) Salicylates (15-30) mg/dL Urine Opiates Screen Negative (Uyfavg=221) ng/mL Acetaminophen (10-30) mcg/mL Ur Barbiturates Screen Negative (Orpady=318) ng/mL Ur Phencyclidine Scrn Negative (Cutoff=25) ng/mL Ur Amphetamines Screen Negative (Dpjacr=1904) ng/mL U Benzodiazepines Scrn Negative (Hjxesl=409) ng/mL Urine Cocaine Screen Negative (Cutoff= 300) ng/mL U Marijuana (THC) Screen Negative (Cutoff = 50) ng/mL Ethyl Alcohol (0-10) mg/dL 12/11/16 Range/Units 18:43 WBC (4.3-11.1) K/mcL RBC (4.19-5.50) M/mcL Hgb (12.9-16.9) g/dL Hct (37.5-50.1) % MCV (83.0-100.0) fL MCH (28.0-33.3) pg MCHC (31.6-35.5) g/dL RDW (11.5-14.5) % Plt Count (140-400) K/mcL MPV (9.4-12.4) fL Immature Gran % (0-4) % Seg Neutrophils % % Lymphocytes % % Monocytes % % Eosinophils % % Basophils % % Neutrophils # (1.6-8.9) K/mcL Lymphocytes # (0.6-4.6) K/mcL Monocytes # (0.0-1.3) K/mcL Eosinophils # (0.0-0.6) K/mcL Basophils # (0.0-0.2) K/mcL Sodium 140 (136-145) mEq/L Potassium 3.4 L (3.5-4.5) mEq/L Chloride 103 (98-109) mEq/L Carbon Dioxide 27 (19-29) mEq/L BUN 9 (8-26) mg/dL Creatinine 1.20 (0.72-1.25) mg/dL Est GFR ( Amer) > 60 (> 60) Est GFR (Non-Af Amer) > 60 (> 60) BUN/Creatinine Ratio 8 (6-26) Glucose 93 (70-99) mg/dL Calculated Osmolality 288 (280-300) Calcium 9.2 (8.6-10.8) mg/dL Urine Color (Yellow) Urine Clarity (Clear) Urine pH (5.0-8.0) pH Units Ur Specific [place] (1.010-1.025) Urine Protein (Neg-Trace) mg/dL Urine Glucose (UA) (Normal) mg/dL Urine Ketones (Negative) mg/dL Urine Blood (Negative) Urine Nitrite (Negative) Urine Bilirubin (Negative) Urine Urobilinogen (Normal) mg/dL Ur Leukocyte Esterase (Negative) Salicylates < 5.0 L (15-30) mg/dL Urine Opiates Screen (Omyzyu=375) ng/mL Acetaminophen < 1.0 L (10-30) mcg/mL Ur Barbiturates Screen (Uewdwo=283) ng/mL Ur Phencyclidine Scrn (Cutoff=25) ng/mL Ur Amphetamines Screen (Bbyskh=9818) ng/mL U Benzodiazepines Scrn (Txvbsu=279) ng/mL Urine Cocaine Screen (Cutoff= 300) ng/mL U Marijuana (THC) Screen (Cutoff = 50) ng/mL Ethyl Alcohol < 10 (0-10) mg/dL
[2016-12-12] MEDS ORDERED: MOM Conc 10 ML UD.LIQ PO PRN (15:14)
[2016-12-12] MEDS ORDERED: Ibuprofen 400 MG TABLET PO PRN (15:14)
[2016-12-12] MEDS ORDERED: Mag Hydrox/Al Hydrox/Simeth 30 ML UDC PO PRN (15:14)
[2016-12-12] MEDS ORDERED: *HR* LORazepam 1 MG TABLET PO PRN (15:14)
[2016-12-12] MEDS ORDERED: Haloperidol Lactate 5 MG/ML VIAL IM PRN (15:14)
[2016-12-12] MEDS ORDERED: traZODone 50 MG TABLET PO PRN (15:14)
[2016-12-12] MEDS ORDERED: *HR* LORazepam 2 MG/ML VIAL IM PRN (15:14)
--- NOTE | 2016-12-13 11:10 | Psychiatry History & Physical ---
Date of Encounter: 12/13/16 Time of Encounter: 11:03 History of Present Illness Patient Stated Chief Complaint: Suicidal Medicare Admission Attestation: For traditional Medicare patients the provided hospital inpatient services are reasonable and necessary and in the case of services not specified as inpatient -only under 42 CFR 419.22 (n), that they are appropriately provided as inpatient services in accordance 42 CFR 412.3. For Critical Access Hospital the patient may reasonably be expected to be discharged or transferred to a hospital within 96 hours after admission to the Critical Access Hospital. Admitted From: Emergency Dept History of Present Illness: Mr. Chinchilla is a 26 year old male admitted from the emergency room for suicidal ideation. This is a rapid readmission of this patient who was discharged from [facility] units on 12/10/2016. Please refer to admission evaluation in the system. Patient stated that after discharge from the hospital he felt suicidal and was thinking about hanging himself and came back to hospital. Again he denies being intoxicated. In his last admission he refused medication did not participate in groups and refused any follow-up planning. Today I discussed with him what to do to help himself overcome his depression and suicidal ideation and reluctantly he agreed to have medication trial off Effexor. He will continue to be guarded, avoids eye contact and not willing to participate in treatment. Past Med Surg Social Fam HX - Past Medical History Medical history: no medical history - Past Psychiatric History Psychiatric history: Reports: depression, previous psychiatric hospitalization Past psychiatric history details: Recently discharged from [facility] on 12/10/2016 Family psychiatric history: Unknown Family History of Suicide: Unknown - Past Surgical History Surgical History: no surgical history - Social History Smoking Status: Former smoker Smokeless Tobacco Status: No Alcohol use: none Drug use: none Medications & Allergies No Known Home Drugs 12/08/16 [History] Allergies Penicillins Allergy (Verified 12/12/16 14:12) Hives Review of Systems Psychiatric: Reports: depression, suicidal ideation, hopelessness, irritability Mental Status Exam Patient orientation: Yes Person, Yes Time, Yes Place Level of alertness: Alert Patient appearance: Appropriate, Well Groomed Behavior: calm, cooperative, anxious, guarded Psychomotor activity: Normal Eye contact: Avoids Eye Contact Mood description: Depressed, Anxious Affect description: congruent with mood, constricted Speech pattern: Normal rate, Normal rhythm, Normal tone, Limited Speech volume: Normal Thought process: Linear, Goal Oriented Thought content: Yes Suicidal ideation, No Homicidal ideation, No Overt delusions Perceptual disturbances: No Auditory hallucinations, No Visual hallucinations Attention span: Capable of Focused Attention Memory description: Grossly Intact Patient reliability: Questionable Historian Intelligence estimate: Average Judgment: Limited Insight: Partial Results - Vital Signs Vital signs: Temp Pulse Resp BP Pulse Ox 98.4 F 61 16 123/81 97 12/13/16 08:52 12/13/16 08:52 12/13/16 08:52 12/13/16 08:52 12/12/16 12:13 - Labs Labs: Laboratory Last Values WBC 9.0 K/mcL (4.3-11.1) 12/11/16 18:43 RBC 4.86 M/mcL (4.19-5.50) 12/11/16 18:43 Hgb 14.7 g/dL (12.9-16.9) 12/11/16 18:43 Hct 42.6 % (37.5-50.1) 12/11/16 18:43 MCV 87.7 fL (83.0-100.0) 12/11/16 18:43 MCH 30.2 pg (28.0-33.3) 12/11/16 18:43 MCHC 34.5 g/dL (31.6-35.5) 12/11/16 18:43 RDW 12.3 % (11.5-14.5) 12/11/16 18:43 Plt Count 290 K/mcL (140-400) 12/11/16 18:43 MPV 8.6 fL (9.4-12.4) L 12/11/16 18:43 Immature Gran % 0.2 % (0-4) 12/11/16 18:43 Seg Neutrophils % 66.7 % 12/11/16 18:43 Lymphocytes % 23.7 % 12/11/16 18:43 Monocytes % 8.2 % 12/11/16 18:43 Eosinophils % 0.9 % 12/11/16 18:43 Basophils % 0.3 % 12/11/16 18:43 Neutrophils # 6.0 K/mcL (1.6-8.9) 12/11/16 18:43 Lymphocytes # 2.1 K/mcL (0.6-4.6) 12/11/16 18:43 Monocytes # 0.7 K/mcL (0.0-1.3) 12/11/16 18:43 Eosinophils # 0.1 K/mcL (0.0-0.6) 12/11/16 18:43 Basophils # 0.0 K/mcL (0.0-0.2) 12/11/16 18:43 Sodium 140 mEq/L (136-145) 12/11/16 18:43 Potassium 3.4 mEq/L (3.5-4.5) L 12/11/16 18:43 Chloride 103 mEq/L (98-109) 12/11/16 18:43 Carbon Dioxide 27 mEq/L (19-29) 12/11/16 18:43 BUN 9 mg/dL (8-26) 12/11/16 18:43 Creatinine 1.20 mg/dL (0.72-1.25) 12/11/16 18:43 Est GFR ( Amer) > 60 (> 60) 12/11/16 18:43 Est GFR (Non-Af Amer) > 60 (> 60) 12/11/16 18:43 BUN/Creatinine Ratio 8 (6-26) 12/11/16 18:43 Glucose 93 mg/dL (70-99) 12/11/16 18:43 Calculated Osmolality 288 (280-300) 12/11/16 18:43 Calcium 9.2 mg/dL (8.6-10.8) 12/11/16 18:43 Urine Color Yellow (Yellow) 12/11/16 18:25 Urine Clarity Clear (Clear) 12/11/16 18:25 Urine pH 6.5 pH Units (5.0-8.0) 12/11/16 18:25 Ur Specific [place] 1.010 (1.010-1.025) 12/11/16 18:25 Urine Protein Negative mg/dL (Neg-Trace) 12/11/16 18:25 Urine Glucose (UA) Normal mg/dL (Normal) 12/11/16 18:25 Urine Ketones Negative mg/dL (Negative) 12/11/16 18:25 Urine Blood Negative (Negative) 12/11/16 18:25 Urine Nitrite Negative (Negative) 12/11/16 18:25 Urine Bilirubin Negative (Negative) 12/11/16 18:25 Urine Urobilinogen Normal mg/dL (Normal) 12/11/16 18:25 Ur Leukocyte Esterase Negative (Negative) 12/11/16 18:25 Salicylates < 5.0 mg/dL (15-30) L 12/11/16 18:43 Urine Opiates Screen Negative ng/mL (Armlme=830) 12/11/16 18:40 Acetaminophen < 1.0 mcg/mL (10-30) L 12/11/16 18:43 Ur Barbiturates Screen Negative ng/mL (Zgfgdo=685) 12/11/16 18:40 Ur Phencyclidine Scrn Negative ng/mL (Cutoff=25) 12/11/16 18:40 Ur Amphetamines Screen Negative ng/mL (Fjimcq=5737) 12/11/16 18:40 U Benzodiazepines Scrn Negative ng/mL (Luukhk=218) 12/11/16 18:40 Urine Cocaine Screen Negative ng/mL (Cutoff= 300) 12/11/16 18:40 U Marijuana (THC) Screen Negative ng/mL (Cutoff = 50) 12/11/16 18:40 Ethyl Alcohol < 10 mg/dL (0-10) 12/11/16 18:43 Assessment and Plan (1) Mood disorder of depressed type Current visit: No Status: Acute Plan: Admit inpatient for safety and stabilization, Close observation, Suicide Precautions per unit protocol, Encourage participation in unit milieu, Group Therapy, Monitor sleep, Monitor appetite Additional Plan: will start patient on Effexor XR 75 mg daily, benefits and side effects were discussed and he is agreeable. Risks, benefits, side effects, alternatives discussed w/pt: Yes Patient agreeable to treatment: Yes
[2016-12-13] MEDS: Venlafaxine XR (24 HR) 75 MG CAP.ER.24H PO SCH (12:07)
[2016-12-14] MEDS: Venlafaxine XR (24 HR) 75 MG CAP.ER.24H PO SCH (08:44)
--- NOTE | 2016-12-14 19:59 | Psychiatry Progress Note ---
Date of Encounter: 12/14/16 Time of Encounter: 19:57 Subjective Interval history: Pt reports that his depression has never responded consistently to any of the meds tried. He has an overwhelming anger problem that also gets him in legal trouble as he cannot control his mouth. He has hypersomnia. Energy level is very low. Has had suicidal thoughts today but no plan or intent. Review of Systems Constitutional: Denies: fever, chills, weakness, weight change Eyes: Denies: eye pain, vision change Ears, Nose, Throat: Denies: ear pain, throat pain, dental pain, hearing loss, congestion Cardiovascular: Denies: chest pain, palpitations, dyspnea on exertion Respiratory: Denies: cough, dyspnea, wheezes Gastrointestinal: Denies: abdominal pain, nausea, vomiting, diarrhea, constipation Musculoskeletal: Denies: joint swelling, joint pain Neurological: Denies: headache, weakness, numbness, memory loss Psychiatric: Reports: depression, suicidal ideation, hopelessness, irritability Objective: Exam Patient orientation: Yes Person, Yes Time, Yes Place Level of alertness: Alert Patient appearance: Appropriate, Well Groomed Behavior: cooperative, anxious, tearful, guarded Psychomotor activity: Slowed Eye contact: Avoids Eye Contact Mood description: Depressed, Anxious Affect description: congruent with mood, constricted Speech pattern: Normal rate, Normal rhythm, Normal tone, Limited Speech volume: Soft/Quiet Thought process: Linear, Goal Oriented Thought content: Yes Suicidal ideation, No Homicidal ideation, No Overt delusions Perceptual disturbances: No Auditory hallucinations, No Visual hallucinations Judgment: Limited Insight: Partial Results - Vital Signs Vital Signs: Temp Pulse Resp BP Pulse Ox 98.4 F 69 16 141/79 97 12/14/16 09:00 12/14/16 09:00 12/14/16 09:00 12/14/16 09:00 12/12/16 12:13 Assessment and Plan (1) Depression Current visit: Yes Status: Acute Plan: Continue hospitalization, Close observation, Suicide Precautions per unit protocol, Encourage participation in unit milieu, Group Therapy, Monitor sleep, Monitor appetite Additional Plan: Start Latuda and consider Trileptal to address depression. Consult Discharge Plan - Plan Referrals: NO,PCP [Primary Care Provider] -
[2016-12-15] MEDS: Venlafaxine XR (24 HR) 75 MG CAP.ER.24H PO SCH (09:09)
--- NOTE | 2016-12-15 17:42 | Psychiatry Progress Note ---
Date of Encounter: 12/15/16 Time of Encounter: 17:35 Subjective Interval history: Pt reports that he continues to feel hopeless and has not yet been started on Latuda. He slept for several hrs. He denies having suicidal intent . He is withdrawn and isolated and does not feel like connecting with peers. He attended the groups though. Review of Systems Psychiatric: Reports: depression, hopelessness, irritability Objective: Exam Patient orientation: Yes Person, Yes Time, Yes Place Level of alertness: Alert Patient appearance: Appropriate, Well Groomed Behavior: cooperative, anxious, guarded Psychomotor activity: Slowed Eye contact: Minimal Contact Mood description: Depressed, Anxious Affect description: congruent with mood, constricted Speech pattern: Normal rate, Normal rhythm, Normal tone, Limited Speech volume: Soft/Quiet Thought process: Linear, Goal Oriented Thought content: Yes Suicidal ideation, No Homicidal ideation, No Overt delusions Perceptual disturbances: No Auditory hallucinations, No Visual hallucinations Judgment: Limited Insight: Partial Results - Vital Signs Vital Signs: Temp Pulse Resp BP Pulse Ox 97.6 F 60 16 119/81 97 12/15/16 08:58 12/15/16 08:58 12/15/16 08:58 12/15/16 08:58 12/12/16 12:13 Assessment and Plan (1) Depression Current visit: Yes Status: Acute Plan: Continue hospitalization, Close observation, Suicide Precautions per unit protocol, Encourage participation in unit milieu, Group Therapy, Monitor sleep, Monitor appetite Additional Plan: Recommend titrating the Latuda dose if he tolerates it well.Also believe pt is a good candidate for TMS given his lack of response to multitudes of meds. Consult Discharge Plan - Plan Referrals: NO,PCP [Primary Care Provider] -
[2016-12-16] MEDS: Venlafaxine XR (24 HR) 75 MG CAP.ER.24H PO SCH (09:05)
--- NOTE | 2016-12-16 16:45 | Psychiatry Progress Note ---
Date of Encounter: 12/16/16 Time of Encounter: 16:43 Subjective Interval history: Pt reports that he had no s/e to Latuda. He continues to have depression and ruminated about suicidal thoughts this morning upon waking up. Does not have a plan or intent. Trying to stay out of his room and socialize with peers. Review of Systems Psychiatric: Reports: depression, anxiety, suicidal ideation, hopelessness, irritability Objective: Exam Patient orientation: Yes Person, Yes Time, Yes Place Level of alertness: Alert Patient appearance: Appropriate, Well Groomed Behavior: cooperative, anxious, guarded Psychomotor activity: Slowed Eye contact: Minimal Contact Mood description: Depressed, Anxious Affect description: congruent with mood, constricted Speech pattern: Normal rate, Normal rhythm, Normal tone, Limited Speech volume: Soft/Quiet Thought process: Linear, Goal Oriented Thought content: Yes Suicidal ideation, No Homicidal ideation, No Overt delusions Perceptual disturbances: No Auditory hallucinations, No Visual hallucinations Judgment: Limited Insight: Partial Results - Vital Signs Vital Signs: Temp Pulse Resp BP Pulse Ox 98.2 F 70 16 119/87 97 12/16/16 08:27 12/16/16 08:27 12/16/16 08:27 12/16/16 08:27 12/12/16 12:13 Assessment and Plan (1) Depression Current visit: Yes Status: Acute Plan: Continue hospitalization, Close observation, Suicide Precautions per unit protocol, Encourage participation in unit milieu, Group Therapy, Monitor sleep, Monitor appetite Additional Plan: Will titrate Latuda to 60 mg hs. Will start Trileptal for mood and anxiety. Consult Discharge Plan - Plan Referrals: NO,PCP [Primary Care Provider] -
[2016-12-16] MEDS: Lurasidone 20 MG TABLET PO SCH (21:15)
[2016-12-16] MEDS: OXcarbazepine 150 MG TABLET PO SCH (21:16)
[2016-12-17] MEDS: OXcarbazepine 150 MG TABLET PO SCH ×2 (08:47→21:38)
[2016-12-17] MEDS: Venlafaxine XR (24 HR) 75 MG CAP.ER.24H PO SCH (08:47)
--- NOTE | 2016-12-17 18:49 | Psychiatry Progress Note ---
Date of Encounter: 12/17/16 Time of Encounter: 18:47 Subjective Interval history: Pt reports that he is tolerating Trileptal well. Sleep is improving . Slept 8 hrs. Energy level is not as good. Wants to complete [employer] school in [place] after this. He also c/o social anxiety in group and public setting. Review of Systems Psychiatric: Reports: depression, anxiety, suicidal ideation, irritability Objective: Exam Patient orientation: Yes Person, Yes Time, Yes Place Level of alertness: Alert Patient appearance: Appropriate, Well Groomed Behavior: cooperative, anxious, guarded Psychomotor activity: Slowed Eye contact: Minimal Contact Mood description: Depressed, Anxious Affect description: congruent with mood, constricted Speech pattern: Normal rate, Normal rhythm, Normal tone, Limited Speech volume: Soft/Quiet Thought process: Linear, Goal Oriented Thought content: Yes Suicidal ideation, No Homicidal ideation, No Overt delusions Perceptual disturbances: No Auditory hallucinations, No Visual hallucinations Judgment: Limited Insight: Partial Results - Vital Signs Vital Signs: Temp Pulse Resp BP Pulse Ox 97.6 F 67 18 118/78 97 12/17/16 09:00 12/17/16 09:00 12/17/16 09:00 12/17/16 09:00 12/12/16 12:13 Assessment and Plan (1) Depression Current visit: Yes Status: Acute Plan: Continue hospitalization, Close observation, Suicide Precautions per unit protocol, Encourage participation in unit milieu, Group Therapy, Monitor sleep, Monitor appetite Additional Plan: Increase Trileptal to 450 mg bid Start Propranolol for social anxiety. Consult Discharge Plan - Plan Additional Instructions: [facility] 26/04 mental health crisis hotline number is [phone]. Referrals: [facility] [Other] ([facility] provides comprehensive mental health and substance abuse services. To establish as a client you may walk in on any Wednesday at 1:45 PM, any Wednesday at 11:15 AM, any Wednesday at 2:45 PM, or any Wednesday at 8:45 AM. When you walk in, your case will be opened to establish you as a client. You will be scheduled for subsequent services based on your needs, and will be referred to the psychiatric prescriber.)
[2016-12-17] MEDS: Lurasidone 20 MG TABLET PO SCH (20:41)
[2016-12-18] MEDS: OXcarbazepine 150 MG TABLET PO SCH ×2 (08:52→20:25)
[2016-12-18] MEDS: Venlafaxine XR (24 HR) 75 MG CAP.ER.24H PO SCH (08:53)
--- NOTE | 2016-12-18 17:01 | Psychiatry Progress Note ---
Date of Encounter: 12/18/16 Time of Encounter: 16:59 Subjective Interval history: Pt reports he had OK sleep last night. He c/o reduced energy. Feels more hopeful of the future. 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 Denies side effects from the new meds. No conflicts with peers and staff. Review of Systems Psychiatric: Reports: depression, anxiety, irritability Objective: Exam Patient orientation: Yes Person, Yes Time, Yes Place, Yes Circumstance Level of alertness: Alert Patient appearance: Appropriate, Well Groomed Behavior: cooperative, anxious, guarded Psychomotor activity: Slowed Eye contact: Minimal Contact Mood description: Depressed, Anxious Affect description: congruent with mood, constricted Speech pattern: Normal rate, Normal rhythm, Normal tone, Limited Speech volume: Soft/Quiet Thought process: Linear, Goal Oriented Thought content: Yes Suicidal ideation, No Homicidal ideation, No Overt delusions Perceptual disturbances: No Auditory hallucinations, No Visual hallucinations Judgment: Limited Insight: Partial Results - Vital Signs Vital Signs: Temp Pulse Resp BP Pulse Ox 98.2 F 63 16 109/73 97 12/18/16 09:00 12/18/16 09:00 12/18/16 09:00 12/18/16 09:00 12/12/16 12:13 Assessment and Plan (1) Depression Current visit: Yes Status: Acute Plan: Continue hospitalization, Close observation, Suicide Precautions per unit protocol, Encourage participation in unit milieu, Group Therapy, Monitor sleep, Monitor appetite Additional Plan: Cont to augment Triletal and Latuda dosage. (2) Mood disorder of depressed type Current visit: No Status: Acute Risks, benefits, side effects, alternatives discussed w/pt: Yes Patient agreeable to treatment: Yes Consult Discharge Plan - Plan Additional Instructions: [facility] 26/04 mental health crisis hotline number is [phone]. Referrals: [facility] [Other] ([facility] provides comprehensive mental health and substance abuse services. To establish as a client you may walk in on any Wednesday at 1:45 PM, any Wednesday at 11:15 AM, any Wednesday at 2:45 PM, or any Wednesday at 8:45 AM. When you walk in, your case will be opened to establish you as a client. You will be scheduled for subsequent services based on your needs, and will be referred to the psychiatric prescriber.)
[2016-12-18] MEDS: hydrOXYzine pamoate 25 MG CAPSULE PO PRN (20:04)
[2016-12-18] MEDS: Lurasidone 20 MG TABLET PO SCH (20:25)
[2016-12-19] MEDS: OXcarbazepine 150 MG TABLET PO SCH ×2 (09:15→21:13)
[2016-12-19] MEDS: hydrOXYzine pamoate 25 MG CAPSULE PO PRN (15:16)
--- NOTE | 2016-12-19 16:28 | Psychiatry Progress Note ---
Date of Encounter: 12/19/16 Time of Encounter: 16:26 Subjective Interval history: Slept well last night. No s/e to meds. Also does not feel much change in mood with Latuda. Plans to d/c early next week. No s/i. Review of Systems Psychiatric: Reports: depression, anxiety, irritability Objective: Exam Patient orientation: Yes Person, Yes Time, Yes Place, Yes Circumstance Level of alertness: Alert Patient appearance: Appropriate, Well Groomed Behavior: cooperative, anxious, guarded Psychomotor activity: Slowed Eye contact: Minimal Contact Mood description: Depressed Affect description: congruent with mood, constricted Speech pattern: Normal rate, Normal rhythm, Normal tone, Limited Speech volume: Soft/Quiet Thought process: Linear, Goal Oriented Thought content: Yes Suicidal ideation, No Homicidal ideation, No Overt delusions Perceptual disturbances: No Auditory hallucinations, No Visual hallucinations Judgment: Limited Insight: Partial Results - Vital Signs Vital Signs: Temp Pulse Resp BP Pulse Ox 97.6 F 76 16 129/79 97 12/19/16 09:00 12/19/16 09:00 12/19/16 09:00 12/19/16 09:00 12/12/16 12:13 Assessment and Plan (1) Depression Current visit: Yes Status: Acute Plan: Continue hospitalization, Close observation, Suicide Precautions per unit protocol, Encourage participation in unit milieu, Group Therapy, Monitor sleep, Monitor appetite Additional Plan: No change in meds indicated at this time. Pts chronic depression may require neuromodulation like TMS . This was shared with the Rx team and the pt. (2) Mood disorder of depressed type Current visit: No Status: Acute Risks, benefits, side effects, alternatives discussed w/pt: Yes Patient agreeable to treatment: Yes Consult Discharge Plan - Plan Additional Instructions: [facility] 26/04 mental health crisis hotline number is [phone]. Referrals: [facility] [Other] ([facility] provides comprehensive mental health and substance abuse services. To establish as a client you may walk in on any Wednesday at 1:45 PM, any Wednesday at 11:15 AM, any Wednesday at 2:45 PM, or any Wednesday at 8:45 AM. When you walk in, your case will be opened to establish you as a client. You will be scheduled for subsequent services based on your needs, and will be referred to the psychiatric prescriber.)
[2016-12-19] MEDS: Lurasidone 20 MG TABLET PO SCH (21:12)
[2016-12-20] MEDS: OXcarbazepine 150 MG TABLET PO SCH ×2 (08:37→21:17)
--- NOTE | 2016-12-20 12:18 | Psychiatry Progress Note ---
Date of Encounter: 12/20/16 Time of Encounter: 12:16 Subjective Interval history: Pt reports that he was feeling low mood yesterday evening and this seems to be unrelated to meds. 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 Review of Systems Psychiatric: Reports: depression, anxiety, irritability Objective: Exam Patient orientation: Yes Person, Yes Time, Yes Place, Yes Circumstance Level of alertness: Alert Patient appearance: Appropriate, Well Groomed Behavior: cooperative, anxious, guarded Psychomotor activity: Slowed Eye contact: Minimal Contact Mood description: Depressed Affect description: congruent with mood, constricted Speech pattern: Normal rate, Normal rhythm, Normal tone, Limited Speech volume: Soft/Quiet Thought process: Linear, Goal Oriented Thought content: Yes Suicidal ideation, No Homicidal ideation, No Overt delusions Perceptual disturbances: No Auditory hallucinations, No Visual hallucinations Judgment: Limited Insight: Partial Results - Vital Signs Vital Signs: Temp Pulse Resp BP Pulse Ox 98.0 F 59 16 111/70 97 12/20/16 09:00 12/20/16 09:00 12/20/16 09:00 12/20/16 09:00 12/12/16 12:13 Assessment and Plan (1) Depression Current visit: Yes Status: Acute Plan: Continue hospitalization, Close observation, Suicide Precautions per unit protocol, Encourage participation in unit milieu, Group Therapy, Monitor sleep, Monitor appetite Additional Plan: Monitor mood closely. Propranolol recently started . Unsure if it contributed to depression or not but will d/c it. (2) Mood disorder of depressed type Current visit: No Status: Acute Risks, benefits, side effects, alternatives discussed w/pt: Yes Patient agreeable to treatment: Yes Consult Discharge Plan - Plan Additional Instructions: [facility] 26/04 mental health crisis hotline number is [phone]. Referrals: [facility] [Other] ([facility] provides comprehensive mental health and substance abuse services. To establish as a client you may walk in on any Wednesday at 1:45 PM, any Wednesday at 11:15 AM, any Wednesday at 2:45 PM, or any Wednesday at 8:45 AM. When you walk in, your case will be opened to establish you as a client. You will be scheduled for subsequent services based on your needs, and will be referred to the psychiatric prescriber.)
[2016-12-20] MEDS: Lurasidone 20 MG TABLET PO SCH (21:17)
[2016-12-21] MEDS: OXcarbazepine 150 MG TABLET PO SCH (09:03)
[2016-12-21 09:14] VITALS: BP 100/70
--- NOTE | 2016-12-21 14:37 | Discharge Summary ---
Date of Encounter: 12/21/16 Time of Encounter: 14:26 Diagnosis - Discharge Diagnosis (1) Mood disorder of depressed type Status: Acute Medications - Discharge Medications Prescriptions: Oxcarbazepine [Trileptal] 450 mg PO BID #60 tablet Lurasidone [Latuda] 60 mg PO HS #30 tablet 12/21/16 [Rx] Oxcarbazepine [Trileptal] 450 mg PO BID #60 tablet 12/21/16 [Rx] Allergies Penicillins Allergy (Verified 12/12/16 14:12) Hives Provider Date of admission: 12/12/16 12:33 Primary care physician: PCP NO Discharging clinician: Raciel Soler Assessment and Plan - Patient/Caregiver Discharge Instructions Activity: resume usual activities as tolerated Diet: regular diet Additional Instructions: [facility] 26/04 mental health crisis hotline number is [phone]. - Follow up Plan Follow up with: [facility] [Other] ([facility] provides comprehensive mental health and substance abuse services. To establish as a client you may walk in on any Wednesday at 1:45 PM, any Wednesday at 11:15 AM, any Wednesday at 2:45 PM, or any Wednesday at 8:45 AM. When you walk in, your case will be opened to establish you as a client. You will be scheduled for subsequent services based on your needs, and will be referred to the psychiatric prescriber.) Functional capacity at discharge: independent ambulation Overall status at discharge: Stable Disposition: Home, Self-Care Hospital Course Hospital course: Mr. Chinchilla is a 26 year old male admitted for suicidal ideation. For details of the admission please see H&P On the units patient was superficially cooperative and agreed to be placed on medication. Medication changes were noted. He is currently on Trileptal and Latuda. He is tolerating the medication and denies side effects, also denies any benefits. His discharge plans were completed by the social insurance adviser and shared with him. Prior to discharge patient was medically stable, nonsuicidal and denies any side effects from medication and fully aware of his discharge plans. - Time Spent with Patient Total time spent providing and/or coordinating discharge services: Less than 30 minutes Quality - Multiple Antipsychotics Patient discharged on 2 or more antipsychotic medications: No Procedures - Procedures Procedures: Medication Management, Crisis Stabilization, Supportive Therapy, Group Therapy, Psychoeducational Therapy Mental Status Exam - Mental Status Exam Patient orientation: Yes Person, Yes Time, Yes Place, Yes Circumstance Level of alertness: Alert Patient appearance: Appropriate, Well Groomed Behavior: cooperative, anxious, guarded Psychomotor activity: Normal Eye contact: Minimal Contact Mood description: Euthymic/stable Affect description: congruent with mood, constricted Speech pattern: Normal rate, Normal rhythm, Normal tone Speech Volume: Soft/Quiet Thought process: Linear, Goal Oriented Thought Content: No Suicidal ideation, No Homicidal ideation, No Overt delusions Perceptual Disturbances: No Auditory hallucinations, No Visual hallucinations Judgment: Limited Insight: Partial
== END 2016-12-21 15:30 | disposition home or self-care (01) | DRG 754 ==
LOC: EMEROO 18:15 → 1ANU 12-12 12:33 → SUATTDRO 12-12 12:33 → 1ANU 12-12 13:50
PROVIDERS: ADMIT Psychiatry & Neurology Psychiatry; ATTEND Psychiatry & Neurology Psychiatry

== ENCOUNTER 2018-06-12 11:58 | Inpatient (IN) ==
--- NOTE | 2018-06-12 12:25 | Emergency Department Note ---
Disposition Clinical Impression: Suicidal ideation Depression Qualifiers: Depression Type: unspecified Qualified Code(s): F32.9 - Major depressive disorder, single episode, unspecified Disposition: Admitted As Inpatient Condition: Good Psych HPI - General Chief Complaint: ED Psychiatric Symptoms Stated Complaint: SI Time Seen by Provider: 06/12/18 12:12 Source: patient Mode of arrival: ambulatory Limitations: no limitations Nursing Notes Reviewed: Yes Vital Signs Reviewed: Yes - History of Present Illness Pt complaint: suicidal ideation, feels depressed Onset (ago): year(s) Duration: constant History of similar episodes: Yes Improves with: none Worsens with: none Alleged intoxication: No Associated Psychiatric Symptoms: depression, suicidal ideation Associated symptoms: Reports: denies other symptoms Traumatic symptoms: denies traumatic injury Treatments prior to arrival: none Self harm or harm to others: admits thoughts of self harm - Related Data Previous Rx's Medication Instructions Recorded Lurasidone [Latuda] 60 mg PO HS #30 tablet 12/21/16 OXcarbazepine [Trileptal] 450 mg PO BID #60 tablet 12/21/16 Allergies Allergy/AdvReac Type Severity Reaction Status Date / Time Penicillins Allergy Hives Verified 12/12/16 14:12 All systems ED: reviewed and negative except as stated. Constitutional: Reports: as per HPI Eyes: Reports: as per HPI ENT ED: Reports: as per HPI Cardiovascular: Reports: as per HPI Respiratory: Reports: as per HPI Gastrointestinal: Reports: as per HPI Genitourinary: Reports: as per HPI Musculoskeletal: Reports: as per HPI Integumentary: Reports: as per HPI Neurological: Reports: as per HPI Psychiatric: Reports: depression, suicidal thoughts Endocrine: Reports: as per HPI Hematological/Lymphatic: Reports: as per HPI Allergic/Immunologic: Reports: as per HPI Past Medical History - Past Medical History Source: patient Medical history: Reports: no medical history Surgical history: Reports: no surgical history Psychiatric history: Reports: depression, previous psychiatric hospitalization - Social History Smoking Status: Current every day smoker Smokeless Tobacco Status: No Alcohol use: Reports: occasionally Drug use: Reports: marijuana Physical Exam Poor eye contact - General Limitations: no limitations General appearance: alert, in no apparent distress - Head Head exam: atraumatic - Eye Eye exam: Present: normal appearance - ENT ENT exam: normal exam - Neck Neck exam: Present: normal inspection, full ROM - Chest Chest inspection: Present: normal inspection, symmetric chest wall rise - Respiratory Respiratory exam: Present: normal lung sounds bilaterally - Cardiovascular Cardiovascular exam: Present: regular rate, normal rhythm, normal heart sounds - Rectal Exam Rectal exam: Present: deferred - Extremities Exam Extremities exam: Present: normal inspection - Neurological Exam Neurological exam: Present: alert, oriented X3, CN II-XII intact - Psychiatric Psychiatric exam: Present: flat affect - Skin Skin exam: Present: warm, dry, intact Course Course Narrative: Patient presents to emergency department feeling depressed and suicidal. He has no physical complaints. I will attempt to clear him medically for behavioral evaluation - Reevaluation(s) Reevaluation #1: Cleared medically for behavioral evaluation Vital Signs Temperature 97.9 F 06/12/18 12:06 Pulse Rate 69 06/12/18 12:06 Respiratory Rate 16 06/12/18 12:06 Blood Pressure 134/87 06/12/18 12:06 O2 Sat by Pulse Oximetry 99 06/12/18 12:06 Temperature 97.6 F 06/12/18 16:08 Pulse Rate 60 06/12/18 16:08 Respiratory Rate 12 06/12/18 16:08 Blood Pressure 125/89 06/12/18 16:08 O2 Sat by Pulse Oximetry 99 06/12/18 12:06 Oxygen Delivery Oxygen Delivery Room Air Psych - Lab Data Lab results reviewed: Yes I reviewed the patient's lab results. Result diagrams: 06/12/18 12:31 06/12/18 12:31 Lab Results 06/12/18 06/12/18 06/12/18 Range/Units 12:28 12:28 12:31 WBC 5.5 (4.3-11.1) K/mcL RBC 5.39 (4.19-5.50) M/mcL Hgb 16.8 (12.9-16.9) g/dL Hct 49.1 (37.5-50.1) % MCV 91.1 (83.0-100.0) fL MCH 31.2 (28.0-33.3) pg MCHC 34.2 (31.6-35.5) g/dL RDW 13.1 (11.5-14.5) % Plt Count 269 (140-400) K/mcL MPV 8.7 L (9.4-12.4) fL Immature Gran % 0.2 (0-4) % Seg Neutrophils % 56.5 % Lymphocytes % 29.7 % Monocytes % 11.4 % Eosinophils % 1.8 % Basophils % 0.4 % Neutrophils # 3.1 (1.6-8.9) K/mcL Lymphocytes # 1.6 (0.6-4.6) K/mcL Monocytes # 0.6 (0.0-1.3) K/mcL Eosinophils # 0.1 (0.0-0.6) K/mcL Basophils # 0.0 (0.0-0.2) K/mcL Sodium (136-145) mEq/L Potassium (3.5-5.1) mEq/L Chloride (98-107) mEq/L Carbon Dioxide (23-29) mEq/L BUN (6-20) mg/dL Creatinine (0.70-1.30) mg/dL Est GFR ( Amer) (> 60) Est GFR (Non-Af Amer) (> 60) BUN/Creatinine Ratio (6-26) Glucose (70-105) mg/dL Calculated Osmolality (280-300) Calcium (8.6-10.3) mg/dL Urine Color Yellow (Yellow) Urine Clarity Clear (Clear) Urine pH 7.5 (5.0-8.0) pH Units Ur Specific [place] < 1.005 L (1.010-1.025) Urine Protein Negative (Neg-Trace) mg/dL Urine Glucose (UA) Normal (Normal) mg/dL Urine Ketones Negative (Negative) mg/dL Urine Blood Negative (Negative) Urine Nitrite Negative (Negative) Urine Bilirubin Negative (Negative) Urine Urobilinogen Normal (Normal) mg/dL Ur Leukocyte Esterase Negative (Negative) Salicylates (15.0-30.0) mg/dL Urine Opiates Screen Negative (Tgbhyo=564) ng/mL Acetaminophen (10-20) mcg/mL Ur Barbiturates Screen Negative (Cvsrcw=453) ng/mL Ur Phencyclidine Scrn Negative (Cutoff=25) ng/mL Ur Amphetamines Screen Negative (Weqmmp=5655) ng/mL U Benzodiazepines Scrn Negative (Lolhvu=038) ng/mL Urine Cocaine Screen Negative (Cutoff= 300) ng/mL U Marijuana (THC) Screen Positive H (Cutoff = 50) ng/mL Ur Drug Screen Interp See Below Ethyl Alcohol (Less than 10) mg/dL 06/12/18 Range/Units 12:31 WBC (4.3-11.1) K/mcL RBC (4.19-5.50) M/mcL Hgb (12.9-16.9) g/dL Hct (37.5-50.1) % MCV (83.0-100.0) fL MCH (28.0-33.3) pg MCHC (31.6-35.5) g/dL RDW (11.5-14.5) % Plt Count (140-400) K/mcL MPV (9.4-12.4) fL Immature Gran % (0-4) % Seg Neutrophils % % Lymphocytes % % Monocytes % % Eosinophils % % Basophils % % Neutrophils # (1.6-8.9) K/mcL Lymphocytes # (0.6-4.6) K/mcL Monocytes # (0.0-1.3) K/mcL Eosinophils # (0.0-0.6) K/mcL Basophils # (0.0-0.2) K/mcL Sodium 135 L (136-145) mEq/L Potassium 3.8 (3.5-5.1) mEq/L Chloride 100 (98-107) mEq/L Carbon Dioxide 29 (23-29) mEq/L BUN 13 (6-20) mg/dL Creatinine 1.01 (0.70-1.30) mg/dL Est GFR ( Amer) > 60 (> 60) Est GFR (Non-Af Amer) > 60 (> 60) BUN/Creatinine Ratio 13 (6-26) Glucose 88 (70-105) mg/dL Calculated Osmolality 280 (280-300) Calcium 10.1 (8.6-10.3) mg/dL Urine Color (Yellow) Urine Clarity (Clear) Urine pH (5.0-8.0) pH Units Ur Specific [place] (1.010-1.025) Urine Protein (Neg-Trace) mg/dL Urine Glucose (UA) (Normal) mg/dL Urine Ketones (Negative) mg/dL Urine Blood (Negative) Urine Nitrite (Negative) Urine Bilirubin (Negative) Urine Urobilinogen (Normal) mg/dL Ur Leukocyte Esterase (Negative) Salicylates < 2.5 L (15.0-30.0) mg/dL Urine Opiates Screen (Dnziyj=070) ng/mL Acetaminophen < 10 L (10-20) mcg/mL Ur Barbiturates Screen (Iisesk=671) ng/mL Ur Phencyclidine Scrn (Cutoff=25) ng/mL Ur Amphetamines Screen (Xxvjkm=3411) ng/mL U Benzodiazepines Scrn (Fgaeye=392) ng/mL Urine Cocaine Screen (Cutoff= 300) ng/mL U Marijuana (THC) Screen (Cutoff = 50) ng/mL Ur Drug Screen Interp Ethyl Alcohol < 10 (Less than 10) mg/dL Psychiatric Medical Clearance - Medical Clearance Checklist Medical History: No Social History Section defined Current Vitals: Last Vital Signs Temp 97.6 F 06/12/18 16:08 Pulse 60 06/12/18 16:08 Resp 12 06/12/18 16:08 BP 125/89 06/12/18 16:08 Pulse Ox 99 06/12/18 12:06 Psychiatric Lab Panel: Drug Levels and Toxicity 06/12/18 06/12/18 12:28 12:31 Urine Opiates Screen Negative Acetaminophen < 10 L Ur Barbiturates Screen Negative Ur Phencyclidine Scrn Negative Ur Amphetamines Screen Negative U Benzodiazepines Scrn Negative Urine Cocaine Screen Negative U Marijuana (THC) Screen Positive H Ethyl Alcohol < 10 Abnormal Labs: Abnormal lab results MPV 8.7 fL (9.4-12.4) L 06/12/18 12:31 Sodium 135 mEq/L (136-145) L 06/12/18 12:31 Ur Specific [place] < 1.005 (1.010-1.025) L 06/12/18 12:28 Salicylates < 2.5 mg/dL (15.0-30.0) L 06/12/18 12:31 Acetaminophen < 10 mcg/mL (10-20) L 06/12/18 12:31 U Marijuana (THC) Screen Positive ng/mL (Cutoff = 50) H 06/12/18 12:28 Statement of Medical Clearance: I have evaluated the patient, reviewed diagnostic information, and certify that the patient's medical condition is sufficiently stable that transfer to the psychiatric unit does not pose a significant risk of deterioration.
[2018-06-12 12:46] LABS: Basophils % 0.4 %; Eosinophils # 0.1 K/mcL (0.0-0.6); Eosinophils % 1.8 %; Hematocrit 49.1 % (37.5-50.1); Hemoglobin 16.8 g/dL (12.9-16.9); Immature Granulocytes % 0.2 % (0-4); Lymphocytes # 1.6 K/mcL (0.6-4.6); Lymphocytes % 29.7 %; Mean Corpuscular HGB Conc 34.2 g/dL (31.6-35.5); Mean Corpuscular Hemoglobin 31.2 pg (28.0-33.3); Mean Corpuscular Volume 91.1 fL (83.0-100.0); Mean Platelet Volume 8.7 fL (9.4-12.4); Monocytes # 0.6 K/mcL (0.0-1.3); Monocytes % 11.4 %; Neutrophils # 3.1 K/mcL (1.6-8.9); Platelet Count 269 K/mcL (140-400); Red Blood Count 5.39 M/mcL (4.19-5.50); Red Cell Distribution Width 13.1 % (11.5-14.5); Segmented Neutrophils % 56.5 %
[2018-06-12 12:53] LABS: Bilirubin,Urine Negative (Negative); Blood,Urine Negative (Negative); Clarity,Urine Clear (Clear); Color,Urine Yellow (Yellow); Glucose,Urine (UA) Normal (Normal); Ketones,Urine Negative (Negative); Leukocyte Esterase,Urine Negative (Negative); Nitrite,Urine Negative (Negative); PH,Urine 7.5 pH Units (5.0-8.0); Protein,Urine Negative (Neg-Trace); Specific Gravity,Urine < 1.005 (1.010-1.025); Urobilinogen,Urine Normal (Normal)
[2018-06-12 13:03] LABS: Amphetamine Screen,Urine Negative ng/mL (Cutoff=1000); Barbiturate Screen,Urine Negative ng/mL (Cutoff=200); Benzodiazepines Screen,Urine Negative ng/mL (Cutoff=200); Cannabinoid Screen,Urine Positive ng/mL (Cutoff = 50); Cocaine Screen,Urine Negative ng/mL (Cutoff= 300); Opiate Screen,Urine Negative ng/mL (Cutoff=300); Phencyclidine Screen,Urine Negative ng/mL (Cutoff=25)
[2018-06-12 13:03] LABS: Acetaminophen < 10 mcg/mL (10-20); Calcium 10.1 mg/dL (8.6-10.3); Carbon Dioxide 29 mEq/L (23-29); Chloride 100 mEq/L (98-107); Ethanol < 10 mg/dL (Less than 10); Glucose 88 mg/dL (70-105); Potassium 3.8 mEq/L (3.5-5.1); Salicylate < 2.5 mg/dL (15.0-30.0); Sodium 135 mEq/L (136-145); eGFR For Non-African Americans > 60 (> 60)
[2018-06-12 13:05] LABS: BUN/Creatinine Ratio 13 (6-26); Blood Urea Nitrogen 13 mg/dL (6-20); Osmolality,Calculated 280 (280-300)
[2018-06-12] MEDS ORDERED: *HR* LORazepam 1 MG TABLET PO PRN (14:57)
[2018-06-12] MEDS ORDERED: Mag Hydrox/Al Hydrox/Simeth 30 ML UDC PO PRN (14:57)
[2018-06-12] MEDS ORDERED: Ibuprofen 400 MG TABLET PO PRN (14:57)
[2018-06-12] MEDS ORDERED: MOM Conc 10 ML UD.LIQ PO PRN (14:57)
[2018-06-12] MEDS ORDERED: hydrOXYzine pamoate 25 MG CAPSULE PO PRN (14:57)
[2018-06-12] MEDS ORDERED: *HR* LORazepam 2 MG/ML VIAL IM PRN (14:57)
[2018-06-12] MEDS ORDERED: Haloperidol Lactate 5 MG/ML VIAL IM PRN (14:57)
[2018-06-12] MEDS: Nicotine 14 MG PATCH.TD24 TD SCH (23:06)
[2018-06-13] MEDS: Nicotine 14 MG PATCH.TD24 TD SCH (10:22)
--- NOTE | 2018-06-13 12:07 | Psychiatry History & Physical ---
Date of Encounter: 06/13/18 Time of Encounter: 12:00 History of Present Illness Patient Stated Chief Complaint: I cant do this anymore Medicare Admission Attestation: For traditional Medicare patients the provided hospital inpatient services are reasonable and necessary and in the case of services not specified as inpatient -only under 42 CFR 419.22 (n), that they are appropriately provided as inpatient services in accordance 42 CFR 412.3. For Critical Access Hospital the patient may reasonably be expected to be discharged or transferred to a hospital within 96 hours after admission to the Critical Access Hospital. Admitted From: Emergency Dept Plans for Post Hospital Care: Home History of Present Illness: Mr. Chinchilla is a 28 year old male The patient is a 28-year-old single white male. He says that his mother dropped him off at the emergency room after she became concerned about his depression. Chief complaint I cannot do this anymore. By this he means everything from getting a job to continuing in day to day activities. History of present illness the patient reports a history of psychiatric illness beginning in childhood even at age 67 years old. The patient was most recently hospitalized in this facility 12/08/2016 through December 102016 and again December 13 through 12/21/2016. The patient reports multiple other psychiatric hospitalizations he reports multiple diagnoses severe depression and personality disorder been among the diagnoses. The patient does report nothing is helped psychiatric medicines not done well or not well-tolerated is a leave him feeling like a zombie. The patient has had no recent counseling since high school but reports that that has not helped and on unit counseling has not helped. The patient been living in his mother's house in [place] even though there is local mental health he has not gone there recently and stated that the local facility was a joke. The patient has low mood and low self-esteem diminished interest recurrent thoughts diminished energy variable concentration diminished appetite sporadic sleep and chronic suicidal ideation. The patient reports 5-6 suicide attempts on 1 and took pills and was told that this was a accident. Another he tried to hang himself another he tried jumping off bridge. The patient has never had ECT he has never had TMS he has never had ketamine prescribed for the treatment of major depression. The patient did acknowledge E IGF AST symptoms but none more than for a few hours each day. The patient reports auditory hallucinations this is continuous at times they say negative things like he should kill himself he does not know who the voices he reports no visual hallucinations other than seeing the occasional shadows out of the corner desire reports ideas of reference thought broadcasting but notes thought withdrawal thought insertion or delusion of passive bitty. The patient was hospitalized in the [facility] 3-4 months as a child. The patient had 3-7 days stays and other facilities as an adult. He reports not responding to medicines and he thinks about suicide on the unit he says he would "run into a wall" but he did not have plans to take an overdose store of pills use devices or hang himself on the unit. Past medical history: Surgery right knee cartilage treated arthroscopically, illnesses none drugs of abuse including marijuana and alcohol although the patient could not speculate on his future or his commitment to sobriety. Meds none Family history is negative for psychiatric illness. He is negative for suicide is positive for alcohol and his dad who is a "white knuckle colic" brother) problem with alcohol and a maternal grandfather was reported to be an alcoholic. There is no history of drug abuse and no completed suicide. Social history the patient has never he graduated from high school he went to vocational school. 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 The patient is not a latter day person but has abhi. He is not currently dating.. The patient applied for disability was told no he would not get it so I did not pursue it any further. Review of systems: Patient has no headaches he wears glasses he is half In his left ear. He has no trouble swallowing but sometimes he has nausea for the past 3-4 years sometimes feels the food coming back. He notes no problems with limbs joints he has no primary care physician he notes one dental problem with a tooth riding. He applied for Medicaid. Currently has no insurance Past Med Surg Social Fam HX - Past Medical History Source: patient Medical history: no medical history - Past Psychiatric History Psychiatric history: Reports: previous psychiatric hospitalization Family psychiatric history: Yes Family History of Suicide: None - Past Surgical History Surgical History: no surgical history, orthopedic, other - Social History Smoking Status: Current every day smoker Smokeless Tobacco Status: No Alcohol use: occasionally Drug use: marijuana Occupational status: previously employed Current living situation: Home, With Family Activity Level: Independent ambulation Recent Out of Country Travel Within the Last 8 Weeks: No Exposure or Possible Exposure to Illness During Travel: No Medications & Allergies Lurasidone [Latuda] 60 mg PO HS #30 tablet 12/21/16 [Rx] OXcarbazepine [Trileptal] 450 mg PO BID #60 tablet 12/21/16 [Rx] 3 Allergy/AdvReac Type Severity Reaction Status Date / Time Penicillins Allergy Hives Verified 12/12/16 14:12 Review of Systems Constitutional: Denies: fever, chills, weakness, weight change Eyes: Denies: eye pain, vision change Ears, Nose, Throat: Reports: hearing loss. Denies: ear pain, throat pain, dental pain, congestion Cardiovascular: Denies: chest pain, palpitations, dyspnea on exertion Respiratory: Denies: cough, dyspnea, wheezes Gastrointestinal: Reports: nausea. Denies: abdominal pain, vomiting, diarrhea, constipation Genitourinary male: Denies: urgency, dysuria, frequency, genital lesions Musculoskeletal: Denies: joint swelling, joint pain Integumentary: Denies: rash, lesions, pruritus Neurological: Denies: headache, weakness, numbness, memory loss Psychiatric: Reports: depression, suicidal ideation, auditory hallucinations Endocrine: Denies: fatigue, heat or cold intolerance Hematologic/Lymphatic: Denies: easy bruising, lymphadenopathy Allergic/Immunologic: Denies: urticaria, itchy eyes Exam - HEENT Head exam IM: Present: atraumatic Eye exam IM: Present: EOMI, normal appearance, PERRL ENT exam IM: Present: normal exam - Neurological Neurological exam: Present: CN II-XII intact - Respiratory Respiratory exam IM: Present: CTAB - GI/Abdominal GI/Abdominal exam IM: Present: normal bowel sounds, soft. Absent: tenderness - Extremities Extremities exam IM: Present: full ROM - Skin Skin exam IM: Present: dry, warm - Additional Information Additional Information: The patient was offered [facility] for the examination but declined. This was a limited exam - Constitutional Vitals: Temp Pulse Resp BP Pulse Ox 97.4 F L 57 16 123/85 99 06/13/18 08:57 06/13/18 08:57 06/13/18 08:57 06/13/18 08:57 09/09/18 12:06 General appearance: age & developmentally appropriate, well-groomed, well- nourished - Musculoskeletal Gait: normal Station: relaxed Strength & Tone: normal for patient - Psychiatric Patient Orientation: Yes Person, Yes Time, Yes Place Level of alertness: Alert Behavior: calm, cooperative Psychomotor activity: Normal Eye Contact: Maintains Eye Contact Mood Description: Euthymic/stable Affect description: congruent with mood, full range Speech Volume: Normal Speech pattern: normal rate, normal rhythm, normal tone, fluent, spontaneous Language & Vocabulary: consistent with education Thought Process: Linear, Goal Oriented Thought Content: Yes Suicidal ideation, No Homicidal ideation, No Overt delusions, Yes Ideas of reference Perceptual Disturbances: Yes Auditory hallucinations, No Visual hallucinations Attention Span Ability: Capable of Focused Attention Memory Description: Grossly Intact Patient Reliability: Reliable Historian Fund of knowledge: Yes abstraction ability, Yes average, Yes aware of current events Intelligence Estimate: Average Judgment: Limited Insight: Partial Results - Labs Labs: Laboratory Last Values WBC 5.5 K/mcL (4.3-11.1) 06/12/18 12:31 RBC 5.39 M/mcL (4.19-5.50) 06/12/18 12:31 Hgb 16.8 g/dL (12.9-16.9) 06/12/18 12:31 Hct 49.1 % (37.5-50.1) 06/12/18 12:31 MCV 91.1 fL (83.0-100.0) 06/12/18 12:31 MCH 31.2 pg (28.0-33.3) 06/12/18 12:31 MCHC 34.2 g/dL (31.6-35.5) 06/12/18 12:31 RDW 13.1 % (11.5-14.5) 06/12/18 12:31 Plt Count 269 K/mcL (140-400) 06/12/18 12:31 MPV 8.7 fL (9.4-12.4) L 06/12/18 12:31 Immature Gran % 0.2 % (0-4) 06/12/18 12:31 Seg Neutrophils % 56.5 % 06/12/18 12:31 Lymphocytes % 29.7 % 06/12/18 12:31 Monocytes % 11.4 % 06/12/18 12:31 Eosinophils % 1.8 % 06/12/18 12:31 Basophils % 0.4 % 06/12/18 12:31 Neutrophils # 3.1 K/mcL (1.6-8.9) 06/12/18 12:31 Lymphocytes # 1.6 K/mcL (0.6-4.6) 06/12/18 12:31 Monocytes # 0.6 K/mcL (0.0-1.3) 06/12/18 12:31 Eosinophils # 0.1 K/mcL (0.0-0.6) 06/12/18 12:31 Basophils # 0.0 K/mcL (0.0-0.2) 06/12/18 12:31 Sodium 135 mEq/L (136-145) L 06/12/18 12:31 Potassium 3.8 mEq/L (3.5-5.1) 06/12/18 12:31 Chloride 100 mEq/L (98-107) 06/12/18 12:31 Carbon Dioxide 29 mEq/L (23-29) 06/12/18 12:31 BUN 13 mg/dL (6-20) 06/12/18 12:31 Creatinine 1.01 mg/dL (0.70-1.30) 06/12/18 12:31 Est GFR ( Amer) > 60 (> 60) 06/12/18 12:31 Est GFR (Non-Af Amer) > 60 (> 60) 06/12/18 12:31 BUN/Creatinine Ratio 13 (6-26) 06/12/18 12:31 Glucose 88 mg/dL (70-105) 06/12/18 12:31 Calculated Osmolality 280 (280-300) 06/12/18 12:31 Calcium 10.1 mg/dL (8.6-10.3) 06/12/18 12:31 Urine Color Yellow (Yellow) 06/12/18 12:28 Urine Clarity Clear (Clear) 06/12/18 12:28 Urine pH 7.5 pH Units (5.0-8.0) 06/12/18 12:28 Ur Specific [place] < 1.005 (1.010-1.025) L 06/12/18 12:28 Urine Protein Negative mg/dL (Neg-Trace) 06/12/18 12:28 Urine Glucose (UA) Normal mg/dL (Normal) 06/12/18 12:28 Urine Ketones Negative mg/dL (Negative) 06/12/18 12:28 Urine Blood Negative (Negative) 06/12/18 12:28 Urine Nitrite Negative (Negative) 06/12/18 12:28 Urine Bilirubin Negative (Negative) 06/12/18 12:28 Urine Urobilinogen Normal mg/dL (Normal) 06/12/18 12:28 Ur Leukocyte Esterase Negative (Negative) 06/12/18 12:28 Salicylates < 2.5 mg/dL (15.0-30.0) L 06/12/18 12:31 Urine Opiates Screen Negative ng/mL (Recmii=561) 06/12/18 12:28 Acetaminophen < 10 mcg/mL (10-20) L 06/12/18 12:31 Ur Barbiturates Screen Negative ng/mL (Mrfkoq=754) 06/12/18 12:28 Ur Phencyclidine Scrn Negative ng/mL (Cutoff=25) 06/12/18 12:28 Ur Amphetamines Screen Negative ng/mL (Azwoza=1421) 06/12/18 12:28 U Benzodiazepines Scrn Negative ng/mL (Xlfode=609) 06/12/18 12:28 Urine Cocaine Screen Negative ng/mL (Cutoff= 300) 06/12/18 12:28 U Marijuana (THC) Screen Positive ng/mL (Cutoff = 50) H 06/12/18 12:28 Ur Drug Screen Interp See Below 06/12/18 12:28 Ethyl Alcohol < 10 mg/dL (Less than 10) 06/12/18 12:31 Assessment and Plan (1) Severe recurrent major depressive disorder with psychotic symptoms Current visit: Yes Status: Acute Plan: Admit inpatient for safety and stabilization, Close observation, Suicide Precautions per unit protocol, Encourage participation in unit milieu, Group Therapy, Monitor sleep, Monitor appetite, Secure weapons, Family/Supportive other meeting Risks, benefits, side effects, alternatives discussed w/pt: Yes Patient agreeable to treatment: Yes Plans for Post Hospital Care: Home Estimated Length of Stay (Days): 8 (2) Suicidal ideation Current visit: Yes Status: Acute Plan: Suicide Precautions per unit protocol, Secure weapons Risks, benefits, side effects, alternatives discussed w/pt: Yes Patient agreeable to treatment : Yes Plans for Post Hospital Care: Home (3) Uncomplicated alcohol abuse Current visit: Yes Status: Chronic Plan: Group Therapy, Monitor sleep, Family/Supportive other meeting Plans for Post Hospital Care: Home (4) Cannabis abuse, uncomplicated Current visit: Yes Status: Chronic Plan: Close observation, Group Therapy, Monitor appetite Risks, benefits, side effects, alternatives discussed w/pt: Yes Patient agreeable to treatment : Yes Plans for Post Hospital Care: Home
[2018-06-13] MEDS ORDERED: Ondansetron ODT 4 MG TAB.RAPDIS SL PRN (12:17)
[2018-06-13] MEDS: Ziprasidone 20 MG CAPSULE PO SCH (20:40)
[2018-06-14] MEDS: Ziprasidone 20 MG CAPSULE PO SCH ×2 (08:41→20:42)
[2018-06-14] MEDS: Venlafaxine XR (24 HR) 75 MG CAP.ER.24H PO SCH (08:41)
[2018-06-14] MEDS: Nicotine 14 MG PATCH.TD24 TD SCH (08:43)
--- NOTE | 2018-06-14 14:33 | Psychiatry Progress Note ---
Date of Encounter: 06/14/18 Time of Encounter: 14:15 Subjective Interval history: ID the patient is a 28-year-old white male. Chief complaint I am having some nausea, can I take motions his pills. How costly are these medicines well or be able to take them in the future. . The patient has a variety of concerns about medicine nonetheless he has been able to tolerate 75 mg of Effexor he has not reported dizziness or sweating although nausea has been a major concern he has had 2 doses of Geodon. Signed in as a voluntary patient. He has additional concerns about the safety viability cost of these medicines he currently has no Medicaid insurance and so this remains a focus. Nonetheless he will apply for Medicaid. The patient has low mood he still hears the voice telling him to do bad things. He has suicidal ideation but without a specific plan requiring a higher level of monitoring on the unit. The patient did not report any EPS and when we discussed medicines he was comfortable with he was comfortable increasing Effexor to a dose of 150 mg per day Review of Systems Psychiatric: Reports: depression, suicidal ideation, auditory hallucinations Results - Vital Signs Vital Signs: Temp Pulse Resp BP Pulse Ox 98.0 F 65 14 123/93 99 06/14/18 09:00 06/14/18 09:00 06/14/18 09:00 06/14/18 09:00 06/12/18 12:06 Assessment and Plan (1) Severe recurrent major depressive disorder with psychotic symptoms Current visit: Yes Status: Acute Plan: Continue hospitalization, Close observation, Suicide Precautions per unit protocol, Encourage participation in unit milieu, Group Therapy, Monitor sleep, Monitor appetite, Secure weapons, Family/Supportive other meeting Risks, benefits, side effects, alternatives discussed w/pt: Yes Patient agreeable to treatment: Yes (2) Suicidal ideation Current visit: Yes Status: Acute Plan: Suicide Precautions per unit protocol, Secure weapons Risks, benefits, side effects, alternatives discussed w/pt: Yes Patient agreeable to treatment : Yes (3) Uncomplicated alcohol abuse Current visit: Yes Status: Chronic Plan: Other Risks, benefits, side effects, alternatives discussed w/pt: Yes Patient agreeable to treatment: Yes (4) Cannabis abuse, uncomplicated Current visit: Yes Status: Chronic Plan: Other Risks, benefits, side effects, alternatives discussed w/pt: Yes Patient agreeable to treatment: Yes Consult Discharge Plan - Plan Referrals: NONE,PCP [Primary Care Provider] - Psychiatry Exam - Constitutional Vitals: Temp Pulse Resp BP Pulse Ox 98.0 F 65 14 123/93 99 06/14/18 09:00 06/14/18 09:00 06/14/18 09:00 06/14/18 09:00 06/12/18 12:06 General appearance: age & developmentally appropriate, well-groomed, well- nourished - Musculoskeletal Gait: normal Station: relaxed Strength & Tone: normal for patient - Psychiatric Patient Orientation: Yes Person, Yes Time, Yes Place Level of alertness: Alert Behavior: calm, cooperative Psychomotor activity: Slowed Eye Contact: Maintains Eye Contact Mood Description: Depressed, Irritable Affect description: congruent with mood, full range, dysphoric Speech Volume: Normal Speech pattern: normal rate, normal rhythm, normal tone, fluent, spontaneous Language & Vocabulary: consistent with education Thought Process: Linear, Goal Oriented Thought Content: Yes Suicidal ideation, No Homicidal ideation, No Overt delusions Perceptual Disturbances: Yes Auditory hallucinations, No Visual hallucinations Attention Span Ability: Capable of Focused Attention Memory Description: Grossly Intact Patient Reliability: Questionable Historian Fund of knowledge: Yes abstraction ability, Yes aware of current events Intelligence Estimate: Average Judgment: Limited Insight: Minimal
[2018-06-15] MEDS: Venlafaxine XR (24 HR) 150 MG CAP.ER.24H PO SCH (09:07)
[2018-06-15] MEDS: Venlafaxine XR (24 HR) 75 MG CAP.ER.24H PO SCH (09:08)
[2018-06-15] MEDS: Ziprasidone 20 MG CAPSULE PO SCH ×2 (09:08→21:20)
[2018-06-15] MEDS: Nicotine 14 MG PATCH.TD24 TD SCH (09:08)
--- NOTE | 2018-06-15 14:10 | Psychiatry Progress Note ---
Date of Encounter: 06/15/18 Time of Encounter: 14:00 Subjective Interval history: D the patient is a 28-year-old white male. He was seen at bedside per his request. Chief complaint I am still having suicidal thinking. Would like to leave the dose of medicines as they are for now. History of present illness: The patient has been admitted for major depression with psychosis while he continues to have depressive symptoms and hear voices he is tolerating the current medicines. The patient has tolerated the medicine Effexor without increase in blood pressure he was able to sleep 7-1/4 hours. The patient has suicidal ideation and while he thinks about ways that he could he has no immediate plans to kill himself on the unit. Nonetheless the patient is interested in talking about treatment options. These include the [facility]. The patient could return home with family. The patient is also concerned as he does not have insurance. He is concerned about the cost of medicines. He is on Geodon Effexor and Zofran. Zofran as help with nausea and he does not think he needs another medicine. Review of Systems Psychiatric: Reports: depression, suicidal ideation, auditory hallucinations Results - Vital Signs Vital Signs: Temp Pulse Resp BP Pulse Ox 98.0 F 82 16 122/62 99 06/15/18 09:00 06/15/18 09:00 06/15/18 09:00 06/15/18 09:00 06/12/18 12:06 Assessment and Plan (1) Severe recurrent major depressive disorder with psychotic symptoms Current visit: Yes Status: Acute Plan: Continue hospitalization, Close observation, Suicide Precautions per unit protocol, Encourage participation in unit milieu, Group Therapy, Monitor sleep, Monitor appetite, Secure weapons, Family/Supportive other meeting Risks, benefits, side effects, alternatives discussed w/pt: Yes Patient agreeable to treatment: Yes (2) Suicidal ideation Current visit: Yes Status: Acute Risks, benefits, side effects, alternatives discussed w/pt: Yes Patient agreeable to treatment: Yes (3) Uncomplicated alcohol abuse Current visit: Yes Status: Chronic Risks, benefits, side effects, alternatives discussed w/pt: Yes Patient agreeable to treatment: Yes (4) Cannabis abuse, uncomplicated Current visit: Yes Status: Chronic Risks, benefits, side effects, alternatives discussed w/pt: Yes Patient agreeable to treatment: Yes Consult Discharge Plan - Plan Referrals: Tirso Moreno [Outside] - 06/20/18 12:00 pm (The abovea appointment is with Sujey for outpatient mental health and dual diagnosis assessment and counseling services. ) Psychiatry Exam - Constitutional Vitals: Temp Pulse Resp BP Pulse Ox 98.0 F 82 16 122/62 99 06/15/18 09:00 06/15/18 09:00 06/15/18 09:00 06/15/18 09:00 06/12/18 12:06 General appearance: age & developmentally appropriate, well-groomed, well- nourished - Musculoskeletal Gait: normal Station: relaxed Strength & Tone: normal for patient - Psychiatric Patient Orientation: Yes Person, Yes Time, Yes Place Level of alertness: Alert Behavior: withdrawn Psychomotor activity: Slowed Eye Contact: Minimal Contact Mood Description: Depressed Affect description: congruent with mood, dysphoric Speech Volume: Normal Speech pattern: normal rate, normal rhythm, normal tone, fluent, spontaneous Language & Vocabulary: consistent with education Thought Process: Linear, Goal Oriented Thought Content: Yes Suicidal ideation, No Homicidal ideation, No Overt delusions Perceptual Disturbances: Yes Auditory hallucinations, No Visual hallucinations Attention Span Ability: Capable of Sustained Attention Memory Description: Grossly Intact Patient Reliability: Questionable Historian Fund of knowledge: Yes abstraction ability, Yes aware of current events Intelligence Estimate: Average Judgment: Limited Insight: Partial
[2018-06-15] MEDS: traZODone 50 MG TABLET PO PRN (22:47)
[2018-06-16] MEDS: Venlafaxine XR (24 HR) 75 MG CAP.ER.24H PO SCH (09:41)
[2018-06-16] MEDS: Ziprasidone 20 MG CAPSULE PO SCH ×2 (09:41→21:05)
[2018-06-16] MEDS: Venlafaxine XR (24 HR) 150 MG CAP.ER.24H PO SCH (09:41)
[2018-06-16] MEDS: Nicotine 14 MG PATCH.TD24 TD SCH (09:43)
--- NOTE | 2018-06-16 16:03 | Psychiatry Progress Note ---
Date of Encounter: 06/16/18 Time of Encounter: 16:00 Subjective Interval history: D the patient's 28-year-old white male. Patient had no chief complaint at time he was seen and he was sleeping. The patient was out in the evening. He will be evaluated by the [facility] tomorrow Review of Systems Psychiatric: Reports: depression, suicidal ideation, auditory hallucinations Results - Vital Signs Vital Signs: Temp Pulse Resp BP Pulse Ox 97.9 F 59 18 130/88 99 06/16/18 08:58 06/16/18 08:58 06/16/18 08:58 06/16/18 08:58 06/12/18 12:06 Assessment and Plan (1) Severe recurrent major depressive disorder with psychotic symptoms Current visit: Yes Status: Acute Plan: Continue hospitalization, Close observation, Suicide Precautions per unit protocol, Encourage participation in unit milieu, Group Therapy, Monitor sleep, Monitor appetite, Secure weapons, Family/Supportive other meeting Risks, benefits, side effects, alternatives discussed w/pt: Yes Patient agreeable to treatment: Yes (2) Suicidal ideation Current visit: Yes Status: Acute Plan: Suicide Precautions per unit protocol, Secure weapons Risks, benefits, side effects, alternatives discussed w/pt: Yes Patient agreeable to treatment : Yes (3) Uncomplicated alcohol abuse Current visit: Yes Status: Chronic Risks, benefits, side effects, alternatives discussed w/pt: Yes Patient agreeable to treatment: Yes (4) Cannabis abuse, uncomplicated Current visit: Yes Status: Chronic Risks, benefits, side effects, alternatives discussed w/pt: Yes Patient agreeable to treatment: Yes Consult Discharge Plan - Plan Referrals: Tirso Moreno [Outside] - 06/20/18 12:00 pm (The abovea appointment is with Sujey for outpatient mental health and dual diagnosis assessment and counseling services. ) Psychiatry Exam - Constitutional Vitals: Temp Pulse Resp BP Pulse Ox 97.9 F 59 18 130/88 99 06/16/18 08:58 06/16/18 08:58 06/16/18 08:58 06/16/18 08:58 06/12/18 12:06 General appearance: age & developmentally appropriate, thin - Psychiatric Patient Orientation: Yes Person, Yes Time, Yes Place Mood Description: Depressed Affect description: congruent with mood, dysphoric Speech Volume: Normal Speech pattern: normal tone Thought Content: Yes Suicidal ideation Perceptual Disturbances: Yes Auditory hallucinations Memory Description: Grossly Intact Patient Reliability: Questionable Historian Judgment: Limited Insight: Minimal
[2018-06-16] MEDS: traZODone 50 MG TABLET PO PRN (21:05)
[2018-06-17 08:17] VITALS: BP 123/90
[2018-06-17] MEDS: Ziprasidone 20 MG CAPSULE PO SCH (08:57)
[2018-06-17] MEDS: Venlafaxine XR (24 HR) 75 MG CAP.ER.24H PO SCH (08:58)
[2018-06-17] MEDS: Venlafaxine XR (24 HR) 150 MG CAP.ER.24H PO SCH (08:58)
[2018-06-17] MEDS: Nicotine 14 MG PATCH.TD24 TD SCH (08:58)
--- NOTE | 2018-06-17 12:16 | Discharge Summary ---
Date of Encounter: 06/17/18 Time of Encounter: 12:00 Diagnosis - Discharge Diagnosis (1) Severe recurrent major depressive disorder with psychotic symptoms Priority: Primary Status: Acute (2) Suicidal ideation Priority: Secondary Status: Chronic (3) Uncomplicated alcohol abuse Priority: Secondary Status: Chronic (4) Cannabis abuse, uncomplicated Status: Chronic Medications - Discharge Medications Prescriptions: Ondansetron ODT [Zofran ODT] 4 mg SL Q6HR PRN 60 Days #30 tab.rapdis PRN Reason: Nausea And Vomiting Venlafaxine XR (24 HR) [Effexor Xr] 150 mg PO DAILY 60 Days #60 cap.er.24h Ziprasidone [Geodon] 40 mg PO BID 120 Days #60 capsule Ondansetron ODT [Zofran ODT] 4 mg SL Q6HR PRN 60 Days #30 tab.rapdis 06/17/18 [ Rx] Venlafaxine XR (24 HR) [Effexor Xr] 150 mg PO DAILY 60 Days #60 cap.er.24h 06/17 [Rx] Ziprasidone [Geodon] 40 mg PO BID 120 Days #60 capsule 06/17/18 [Rx] 3 Allergy/AdvReac Type Severity Reaction Status Date / Time Penicillins Allergy Hives Verified 06/15/18 16:11 Provider Date of admission: 06/12/18 14:41 Primary care physician: PCP NONE Discharging clinician: Dylan Blankenship Psychiatry Exam - Constitutional Vitals: Temp Pulse Resp BP Pulse Ox 98.5 F 85 16 123/90 99 06/17/18 08:16 06/17/18 08:16 06/17/18 08:16 06/17/18 08:16 06/12/18 12:06 General appearance: age & developmentally appropriate, well-groomed, well- nourished - Musculoskeletal Gait: normal Station: relaxed Strength & Tone: normal for patient - Psychiatric Patient Orientation: Yes Person, Yes Time, Yes Place Level of alertness: Alert Behavior: calm, cooperative Psychomotor activity: Normal Eye Contact: Maintains Eye Contact Mood Description: Euthymic/stable Affect description: congruent with mood, full range Speech Volume: Normal Speech pattern: normal rate, normal rhythm, normal tone, fluent, spontaneous Language & Vocabulary: consistent with education Thought Process: Linear, Goal Oriented Thought Content: Yes Suicidal ideation, No Homicidal ideation, No Overt delusions Perceptual Disturbances: Yes Auditory hallucinations, No Visual hallucinations Attention Span Ability: Capable of Focused Attention Memory Description: Grossly Intact Patient Reliability: Reliable Historian Fund of knowledge: Yes abstraction ability, Yes aware of current events Intelligence Estimate: Average Judgment: Fair Insight: Partial Hospital Course Hospital course: Mr. Chinchilla is a 28 year old male CC: I still hear the voice but is quieter. I still have suicidal thinking but I do not have a plan. The patient has developed major depression with psychosis and has been rather refractory to treatment. During his hospital stay he did agree to medicines and would be more activating and was started on Effexor at 75 mg. He tolerated this dose. The dose was then increased on 150 mg. The patient minimal side effects but occasionally sweating. The patient was able to take Geodon 20 mg and he tolerated this with food. In the past the patient has had nausea and so Zofran was as needed for nausea. Patient was able to tolerate the medicine without significant worsening in insomnia no changes in blood pressure. Patient still concerned about possible alcohol interactions drug drug interactions. He plans to stay away from alcohol and drugs abuse. The patient's mother was contacted and she could assure a safe environment. The patient had limited financial resources and so a 60 day prescription of medicine was prepared for him as his next appointment was 07/28/2018. The patient will apply for additional services. The patient was seen by the [facility] and could consider this in the future but there are currently no beds available. The patient may wish to return to leisure activities, work like activities and social activities in the future. He recognizes that ongoing suicidal ideation and auditory hallucinations could get better with time with the ongoing treatment but he was made aware of options for returning to the ER or even rehospitalization if symptoms get worse. The patient participated in some group and individual activities on the unit. The patient did not wish to stop smoking at this time. Prior to discharge the patient was informed that a bed had become available to [facility]. Therefore the discharge was changed to the [facility] in [facility]. Time spent discussing smoking cessation with patient: 3 to 10 minutes Does patient wish to continue nicotine replacement upon disc: No - Time Spent with Patient Total time spent providing and/or coordinating discharge services: Less than 30 minutes Assessment and Plan - Patient/Caregiver Discharge Instructions Activity: resume usual activities as tolerated Diet: regular diet Additional Instructions: avoid alcohol and drugs - Follow up Plan Follow up with: [facility] [Outside] - 06/20/18 12:00 pm (The abovea appointment is with Sujey for outpatient mental health and dual diagnosis assessment and counseling services. ) [facility] Erendira [Outside] - 07/28/18 2:00 pm (The above appointment is with Maryjane Gardner for outpatient psychiatric assessment and medication management services. Please arrive 15 minutes early to complete paperwork. Please bring your insurance card, photo ID and medications in their original bottles. If you do not have insurance, bring proof of income to apply for the sliding fee scale. If you are unable to keep this appointment, 24 hour business notice of cancellation is expected. The above appointment(s) reflects first availability. You may contact the office regularly to check for cancellations that may allow you to be seen sooner.) Functional capacity at discharge: independent ambulation Overall status at discharge: patient is back to baseline Disposition: Home, Self-Care Quality - Multiple Antipsychotics Patient discharged on 2 or more antipsychotic medications: No Procedures - Procedures Procedures: Medication Management, Crisis Stabilization, Supportive Therapy, Group Therapy, Psychoeducational Therapy
== END 2018-06-17 14:15 | disposition home or self-care (01) | DRG 751 ==
LOC: EMEROOARM 11:58 → SUATTDRO 14:41 → 1ANU 14:41
PROVIDERS: ADMIT Psychiatry & Neurology Psychiatry; ATTEND Psychiatry & Neurology Forensic Psychiatry